=== PATIENT | female | born 1950 | race Caucasian/White ===

== ENCOUNTER → 2019-02-01 | Outpatient (CLI) | payer MEDICARE, OTHER ==
--- NOTE | 2019-02-02 07:41 | Diagnostic Imaging Report ---
Exam: Cervical spine MRI precontrast History: Cervical radiculopathy, left shoulder and neck pain Comparison studies: None Technique: Sagittal T1, T2 and IR, axial T2, axial T1 and axial gradient echo Intravenous contrast: None Findings: Several pulse sequences are still limited by artifacts related to patient motion. Alignment: Normal lordosis. No scoliosis. Cervicomedullary junction: No abnormalities. Patent foramen magnum. Soft tissues: No T2 hyperintense inflammatory changes. Spinal cord: Normal in size. No gross cord signal abnormalities. Vertebrae: No fractures, infection or neoplasm. Degenerative changes: C2-C3: Mildly degenerated disc. Minimal retrolisthesis of C2 on C3 with associated disc osteophyte complex, uncovertebral arthrosis and facet arthrosis with mild right foraminal stenosis. Patent canal and left foramen C3-C4: Mildly degenerated disc. Small asymmetric right disc osteophyte complex does not result in significant canal stenosis. Patent foramina. C4-C5: Mildly degenerated disc. Disc osteophyte complex and uncovertebral arthrosis result in mild bilateral foramina stenosis. Patent canal. C5-C6: Moderately degenerated disc. Disc osteophyte complex, uncovertebral arthrosis and facet arthrosis result in severe right and mild left foraminal stenosis. Minimal canal stenosis.. C6-C7: Mildly degenerated disc. Disc osteophyte complex, uncovertebral arthrosis and facet arthrosis with moderate bilateral foraminal stenosis. Minimal canal stenosis. C7-T1: Patent canal and foramina. T1-T2 through T3-T4: Mildly degenerated disks. Small paracentral disc protrusion at T1-T2 and small disc bulge at T2-T3 do not result in canal stenosis. Patent foramina. IMPRESSION: 1. Multilevel disc degeneration, greatest/moderate at C5-C6 and at C6-C7. 2. Severe right C5-C6 and moderate bilateral C6-C7 degenerative foraminal stenosis. 3. No significant canal stenosis. Signed by: Dr. Montez Clarke M.D. on 02/02/2019 7:38 AM
--- NOTE | 2019-02-02 10:26 | Diagnostic Imaging Report ---
TECHNIQUE: Magnetic resonance imaging of the LEFT SHOULDER was performed WITHOUT injected contrast. The study is partially limited by suboptimal fat saturation on some of the images. HISTORY: ADHESIVE CAPSULITIS, frozen, pain COMPARISON: None available. FINDINGS: MUSCLES AND TENDONS: Rotator Cuff: Tendons: Supraspinatus and Infraspinatus: High-grade bursal sided attenuation of the anterior supraspinatus fibers. Mild thickening and increased intrasubstance signal of the upper spine greatest tendon. Teres Minor: Intact Subscapularis: Intact Muscles: No focal muscle atrophy. Biceps Tendon: The long head of the biceps tendon is intact and within the intertubercular groove. GLENOHUMERAL JOINT: Glenoid Labrum: No displaced tear. Articular Cartilage: Low-grade erosion of the glenoid cartilage. Joint Fluid: No effusion. ACROMIOCLAVICULAR JOINT: Mild hypertrophic degenerative changes of the acromioclavicular joint. Synovitis and trace effusion. BONE: The acromion is unremarkable. No focal or infiltrative bone marrow replacing abnormality. No acute fracture. Subcortical enthesopathic cystic changes at the posterior aspect of the greater tuberosity. SOFT TISSUES: Trace fluid in the subacromial/subdeltoid bursa. Mild synovitis of the rotator interval. Mild thickening and edema of the glenohumeral axillary recess joint capsule. IMPRESSION: 1. Findings compatible with evolving adhesive capsulitis. 2. High-grade, focal, bursal sided, partial-thickness tear of the anterior supraspinatus tendon. 3. Mild infraspinatus tendinosis and chronic insertional enthesopathy. 4. Mild acromioclavicular osteoarthritis and minimal glenohumeral osteoarthrosis. 5. Minimal subacromial/subdeltoid bursitis. Signed by: Dr. Jules Esquivel D.O., M.M.M. on 02/02/2019 10:23 AM
== END ==
LOC: MRI 15:27
PROVIDERS: ATTEND Family Medicine
DX: M54.12 Radiculopathy, cervical region (principal); M75.02 Adhesive capsulitis of left shoulder
CPT/HCPCS: 72141

== ENCOUNTER 2019-02-21 05:56 | Observation (INO) | payer MEDICARE, OTHER ==
[2019-02-19 11:59] LABS: BASOPHILS # (AUTO) 0.1 (0.0-0.1); BASOPHILS % 0.7 % (0.0-1.0); EOSINOPHILS # (AUTO) 0.5 (0.0-0.4); EOSINOPHILS % 4.7 % (0.0-6.0); HEMATOCRIT 40.6 % (34.2-44.1); HEMOGLOBIN 12.7 g/dL (12.0-16.0); LYMPHOCYTES # (AUTO) 3.3 (1.0-3.2); LYMPHOCYTES % 31.3 % (18.0-39.1); MEAN CORPUSCULAR HEMOGLOBIN 25.2 pg (28-32); MEAN CORPUSCULAR HGB CONC 31.3 g/dL (31-35); MEAN CORPUSCULAR VOLUME 80.7 fL (81-99); MONOCYTES # (AUTO) 0.8 (0.2-0.8); MONOCYTES % 7.7 % (4.4-11.3); NEUTROPHILS # (AUTO) 5.7 (2.1-6.9); NEUTROPHILS % 54.1 % (38.7-80.0); PLATELET COUNT 392 x10e3/uL (140-360); RED BLOOD COUNT 5.03 x10e6/uL (3.6-5.1); RED CELL DISTRIBUTION WIDTH 14.7 % (11.7-14.4)
[2019-02-19 12:16] LABS: ANION GAP 13.6 mmol/L (8-16); BLOOD UREA NITROGEN 18 mg/dL (7-26); BUN/CREATININE RATIO 24 (6-25); CALCIUM 9.9 mg/dL (8.4-10.2); CARBON DIOXIDE 27 mmol/L (22-29); CHLORIDE 100 mmol/L (98-107); CREATININE, SERUM 0.76 mg/dL (0.57-1.11); EST GLOMERULAR FILTRATION RATE > 60 ML/MIN (60-); GLUCOSE 95 mg/dL (74-118); POTASSIUM 4.6 mmol/L (3.5-5.1); SODIUM 136 mmol/L (136-145)
--- NOTE | 2019-02-19 12:20 | Diagnostic Imaging Report ---
EXAMINATION: PA and lateral views of the chest. COMPARISON: None CLINICAL HISTORY: Preoperative study for hernia repair DISCUSSION: The lungs are well-inflated. Linear opacity in the right midlung compatible with scar or subsegmental atelectasis. No airspace consolidation, pleural effusion, or pneumothorax. Cardiomediastinal contour and pulmonary vasculature are within normal limits. No acute osseous abnormality. Upper abdominal surgical clips on the lateral radiograph likely reflect prior cholecystectomy. IMPRESSION: Right midlung scar or subsegmental atelectasis. Otherwise no acute cardiopulmonary abnormality. Signed by: Dr. Montez Sutton M.D. on 02/19/2019 12:17 PM
[~2019-02-21] VITALS: Ht 165.1 cm; Wt 54.4 kg
[~2019-02-21 05:56] MED LIST: EFFEXOR XR 3737.5 MG; LYRICA75 MG; NEXIUM40 MG; TYLENOL WITH C1 EACH PO
--- OUTSIDE RECORDS SUMMARY | 2019-02-21 06:00 | XMS REPORT | Summary of Care ---
Author Author NANCY LORD M.D. Organization Unknown Address [facility] Phone Unavailable Care Team Providers Care Pilates Instructor Name Role Phone NANCY LORD M.D. Unavailable Unavailable NANCY REGALADO Unavailable Unavailable Functional Status Name Dates Details Functional status health issues are not documented Status: Name Dates Details Cognitive status health issues are not documented Status: Problems Name Dates Details Adhesive capsulitis of left shoulder (726.0, M75.02) Status: Active Medications Name Dates Details Tylenol with Codeine #3 TABS Active Effexor 50 MG TABS * Refills: 0 Active NexIUM PACK * Refills: 0 Active Allergies and Adverse Reactions Name Dates Details No Known Drug Allergies (Allergy) Status: Active Past Medical History Name Dates Details History of arthritis (V13.4, Z87.39) Status: Resolved History of asthma (V12.69, Z87.09) Status: Resolved History of back pain (V13.59, Z87.39) Status: Resolved History of carpal tunnel syndrome (V12.49, Z86.69) Status: Resolved History of depression (V11.8, Z86.59) Status: Resolved History of gallbladder disease (V12.79, Z87.19) Status: Resolved History of hay fever (V12.69, Z87.09) Status: Resolved History of hemorrhoids (V13.89, Z87.19) Status: Resolved History of hepatitis (V12.09, Z86.19) Status: Resolved History of Hernia (553.9, K46.9) Status: Resolved History of pneumonia (V12.61, Z87.01) Status: Resolved History of staphylococcal infection (V12.09, Z86.19) Status: Resolved Procedures Procedure Dates Details History of Gallbladder surgery Completed History of Hysterectomy Completed Immunization Name Dates Details Immunizations not documented Family History Name Dates Details Family history of Heart trouble (429.9, I51.9) Comments: Family History Status: Active Family history of hypertension (V17.49, Z82.49) Comments: Family History Status: Active Family history of malignant neoplasm (V16.9, Z80.9) Comments: Family History Status: Active Social History Name Dates Details Unknown if ever smoked Vital Signs Date Test Result Details No Known Vitals to report Results Date Description Value Details [id number] [U] XRAY SHOULDER MIN 2 VWS LEFT [id number] XR SHOULDER MIN 2 VWS LEFT Images acquired, not reported on this accession number. [id number] [U] XRAY SPINE CERVICAL 2 OR 3 VWS [id number] XR SPINE CERVICAL 2 OR 3 VWS Images acquired, not reported on this accession number. Plan of Care Name Dates Details Planned Observations Planned Goals not documented Planned Encounters Physical Therapy Referral Ortho Appointment; NANCY LORD M.D. On: 30-Jan-2019 11:15 Interventions Provided Labs/Procedures/Imaging* [U] XRAY SHOULDER MIN 2 VWS LEFT [id number]; Done: 19 Dec 2018 * [U] XRAY SPINE CERVICAL 2 OR 3 VWS [id number]; Done: 19 Dec 2018 Plan* - Left shoulder corticosteroid injection today * - Trial of PT with home health * - Ibuprofen, topical NSAIDs for pain * - RTC in 6 weeks * Completed at Today's Appointment: * Injection * Patient Education/Instructions: * Patient Education Provided * Reassurance * Patient/Parent to call or return with any abnormal changes * Orders: * Physical Therapy * Medications: * Medications (prescribed or recommended at this visit): Medication was prescribed or recommended. Dosage, administration, and common potential side effects were reviewed. Please confirm and review medication information and directions with the pharmacist. * - Instructions were given to take anti-inflammatory medication with food and only as directed by a physician. DO NOT take more than prescribed as this can cause serious side effects including kidney damage in higher doses. * Instructions were given to apply topical anti-inflammatory medication only as directed by a physician. Do not take oral NSAIDs while using this medication. * - Take 500mg - 1000mg of acetaminophen (Tylenol) every 4-6 hours as needed for relief of pain, discomfort, or fever. Do NOT take more than 4000mg in a 24 hour period (can cause liver damage in higher doses). * Follow Up: * Return to the clinic in 6 weeks or as needed. Instructions Name Dates Details Instructions not documented Encounters Appointment; NANCY LORD M.D. Encounter Diagnosis: Problem not documented On: 19-Dec-2018 11:15
--- OUTSIDE RECORDS SUMMARY | 2019-02-21 06:00 | XMS REPORT ---
Author Author [facility] Address Unknown Phone Unavailable Care Team Providers Care Winder Helper Name Role Phone Jennifer BROWNLEE Unavailable Unavailable Carlos Alberto HAWKINS Unavailable Unavailable Payers Payer Name Policy Type Policy Number Effective Date Expiration Date Problems This patient has no known problems. Allergies, Adverse Reactions, Alerts Allergy Name Allergy Type Status Severity Reaction(s) Onset Date Inactive Date Treating Clinician Comments clavulanic acid DA Active U 2018-11-01 00:00:00 amoxicillin DA Active U 2018-11-01 00:00:00 levofloxacin DA Active U 2018-11-01 00:00:00 Medications This patient has no known medications. Results Test Description Test Time Test Comments Text Results Atomic Results Result Comments CHEST 2 VIEWS 2019-02-19 12:15:00 [place] [address] Patient Name: SILVINO GAGNON MR #: [id number] : 1950 Age/Sex: 68/F Req #: [id number] Adm Physician: Ordered by: CARLOS BROWNLEE MD Report #: [id number] Location: OR Room/Bed: Procedure: [id number] DX/CHEST 2 VIEWS Exam Date: 02/19/19 Exam Time: 1140 REPORT STATUS: Signed EXAMINATION: PA and lateral views of the chest. COM PARISON: None CLINICAL HISTORY: Preoperative study for hernia repair DISCUSSION: The lungs are well-inflated. Linear opacity in the right midlung compatible with scar or subsegmental atelectasis. No airspace consolidation, pleural effusion, or pneumothorax. Cardiomediastinal contour and pulmonary vasculature are within normal limits. No acute osseous abnormality. Upper abdominal surgical clips on the lateral radiograph likely reflect prior cholecystectomy. IMPRESSION: Right midlung scar or subsegmental atelectasis. Otherwise no acute cardiopulmonary abnormality. Signed by: Dr. Bella Sutton M.D. on 02/19/2019 12:17 PM Dictated By: BELLA SUTTON MD 1217 Transcribed By: GUI on 02/19/19 1217 COPY TO: CARLOS BROWNLEE MD MRI SHOULDER LEFT WO 2019-02-02 10:14:00 [place] [address] Patient Name: SILVINO GAGNON MR #: [id number] : 1950 Age/Sex: 68/F Req #: [id number] Adm Physician: Ordered by: MIKO HAWKINS MD Report #: [id number] Location: MRI Room/Bed: Procedure: [id number] MRI/MRI SHOULDER LEFT WO Exam Date: Exam Time: REPORT STATUS: Signed TECHNIQUE: Magnetic resonance imaging of the LEFT SHOULDER was p erformed WITHOUT injected contrast. The study is partially limited by suboptimal fat saturation on some of the images. HISTORY: ADHESIVE CAPSULITIS, frozen, pain COMPARISON: None available. FINDINGS: MUSCLES AND TENDONS: Rotator Cuff: Tendons: Supraspinatus and Infraspinatus: High-grade bursal sided attenuation of the anterior supraspinatus fibers. Mild thickening and increased intrasubstance signal of the upper spine greatest tendon. Teres Minor: Intact Subscapularis: Intact Muscles: No focal muscle atrophy. Biceps Tendon: The long head of the biceps tendon is intact and within the intertubercular groove. GLENOHUMERAL JOINT: Glenoid Labrum: No displaced tear. Articular Cartilage: Low-grade erosion of the glenoid cartilage. Joint Fluid: No effusion. ACROMIOCLAVICULAR JOINT: Mild hypertrophic degenerative changes of the acromioclavicular joint. Synovitis and trace effusion. BONE: The acromion is unremarkable. No focal or infiltrative bone marrow replacing abnormality. No acute fracture. Subcortical enthesopathic cystic changes at the posterior aspect of the greater tuberosity. SOFT TISSUES: Trace fluid in the subacromial/subdeltoid bursa. Mild synovitis of the rotator interval. Mild thickening and edema of the glenohumeral axillary recess joint capsule. IMPRESSION: 1. Findings compatible with evolving adhesive capsulitis. 2. High-grade, focal, bursal sided, partial-thickness tear of the anterior supraspinatus tendon. 3. Mild infraspinatus tendinosis and chronic insertional enthesopathy. 4. Mild acromioclavicular osteoarthritis and minimal glenohumeral osteoarthrosis. 5. Minimal subacromial/subdeltoid bursitis. Signed by: Mikki ConcepcionO., M.M.M. on 02/02/2019 10:23 AM Dictated By: GLENDA ROMERO DO 1023 Transcribed By: GUI on 02/02/19 1023 COPY TO: MIKO HAWKINS MD MRI SPINE CERVICAL WO 2019-02-02 07:26:00 [place] [address] Patient Name: SILVINO GAGNON MR #: [id number] : 1950 Age/Sex: 68/F [facility] #: [id number] Req #: [id number] [facility] Physician: Ordered by: MIKO HAWKINS MD Report #: [id number] Location: MRI Room/Bed: Procedure: [id number] MRI/MRI SPINE CERVICAL WO Exam Date: Exam Time: REPORT STATUS: Signed Exam: Cervical spine MRI precontrast History: Cervical radiculo rocky, left shoulder and neck pain Comparison studies: None Technique: Sagittal T1, T2 and IR, axial T2, axial T1 and axial gradient echo Intravenous contrast: None Findings: Several pulse sequences are still limited by artifacts related to patient motion. Alignment: Normal lordosis. No scoliosis. Cervicomedullary junction: No abnormalities. Patent foramen magnum. Soft tissues: No T2 hyperintense inflammatory changes. Spinal cord: Normal in size. No gross cord signal abnormalities. Vertebrae: No fractures, infection or neoplasm. Degenerative changes: C2-C3: Mildly degenerated disc. Minimal retrolisthesis of C2 on C3 with associated disc osteophyte complex, uncovertebral arthrosis and facet arthrosis with mild right foraminal stenosis. Patent canal and left foramen C3-C4: Mildly degenerated disc. Small asymmetric right disc osteophyte complex does not result in significant canal stenosis. Patent foramina. C4-C5: Mildly degenerated disc. Disc osteophyte complex and uncovertebral arthrosis result in mild bilateral foramina stenosis. Patent canal. C5-C6: Moderately degenerated disc. Disc osteophyte complex, uncovertebral arthrosis and facet arthrosis result in severe right and mild left foraminal stenosis. Minimal canal stenosis.. C6-C7: Mildly degenerated disc. Disc osteophyte complex, uncovertebral arthrosis and facet arthrosis with moderate bilateral foraminal stenosis. Minimal canal stenosis. C7-T1: Patent canal and foramina. T1-T2 through T3-T4: Mildly degenerated disks. Small paracentral disc protrusion at T1-T2 and small disc bulge at T2-T3 do not result in canal stenosis. Patent foramina. IMPRESSION: 1. Multilevel disc degeneration, greatest/moderate at C5-C6 and at C6-C7. 2. Severe right C5- C6 and moderate bilateral C6-C7 degenerative foraminal stenosis. 3. No significant canal stenosis. Signed by: Dr. Bella Erickson M.D. on 02/02/2019 7:38 AM Dictated By: BELLA ERICKSON MD 7 Transcribed By: GUI on 02/02/19737 COPY TO: MKIO HAWKINS MD - CT CHEST W/CONTRAST 2019-01-01 15:40:00 Name: SILVINO GAGNON [facility] : 1950 Age/S: 68 / F [address] [place] [address] Unit #: [id number] Loc: [place] [address] Phys: Kamari Willis MD Acct: [id number] Dis Date: Status: REG CLI PHONE #: [phone] Exam Date: 01/01/2019 09 FAX #: [phone] Reason: R91.1 LUNG NODULE EXAMS: CPT CODE: [id number] CT CHEST W/CONTRAST [address]9024 Patient: SILVINO GAGNON. : 1950; Age: 68 years; Gender: Female. MR: [id number]. Ordering physician: Kamari Willis MD. PROCEDURE: CT CHEST WITH CONTRAST. INDICATION: Lung nodules and abscess. COMPARISON: None. TECHNIQUE: Helical imaging performed apices through the lung bases with multiplanar reconstructions. CT imaging was performed with exposure control parameters to reduce radiation dose. Total DLP: 313.20 mGy-cm IV CONTRAST: 100 mL Isovue 300. FINDINGS: LUNGS: Small calcified granuloma noted at the posterolateral right upper lobe, axial image 34. Small faint nodules noted in the right upper lobe, largest measuring 3 mm, suspected to be infectious versus inflammatory in etiology. 2-3 mm subpleural pulmonary nodule noted at the posterior aspect of right lower lobe. Pleuroparenchymal scarring and/or atelectasis noted along the right minor fissure. No pleural effusion, pneumothorax, infiltrate or bronchiectasis. MEDIASTINUM: Heart is normal in size. No pericardial effusion. Great vessels are normal in course and caliber. No adenopathy. Small hiatal hernia noted. UPPER ABDOMEN: Visualized upper abdominal viscera are normal. MUSCULOSKELETAL: The skeleton is intact. 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 IMPRESSION: 1. Small faint nodules in the right upper lobe, largest measuring 3 mm, suspected to be infectious versus inflammatory in etiology. 2-3 mm subpleural pulmonary nodule also noted at the posterior aspect of right lower lobe. 2. Pleuroparenchymal scarring and/or atelectasis along the right minor fissure. No pulmonary abscess. PAGE 1 Signed Report (CONTINUED) Name: SILVINO GAGNON [facility] : 1950 Age/S: 68 / F [address] [place] [address] Unit #: [id number] Loc: [place] [address] Phys: Kamari Willis MD Acct: [id number] Dis Date: Status: REG CLI PHONE #: [phone] Exam Date: 01/01/2019 0904 FAX #: [phone] Reason: R91.1 LUNG NODULE EXAMS: CPT CODE: [id number] CT CHEST W/CONTRAST 68491 <Continued> 3. Small hiatal hernia. 4. 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 SL: [id number] at 1540 Reported and signed by: Leobardo Phelps M.D. CC: Ja Bowman MD; Kamari Willis MD; Miko Hawkins MD Technologist:RT Raghu(R)(CT) CTDI: DLP: Trnscb Date/Time: 01/01/2019 (1540) [email or web address] Orig Print D/T: S: 01/01/2019 (1543) CTDI: DLP: PAGE 2 Signed Report - XR ESOPHAGUS 2019-01-01 10:21:00 FAX: Ja Cai MD [phone] [place]: St: REG FAX: Kamari Ernandez MD [phone] FAX: Miko Gomez MD [phone] Name: SILVINO GAGNON [facility] : 1950 Age/S: 68/F [address] [place] [address] Unit #: [id number] Loc: [place] [address] Phys: Ja Bowman MD Acct: [id number] Dis Date: Status: REG CLI PHONE #: [phone] Exam Date: 01/01/2019 0950 FAX #: [phone] Reason: 544.9 GERD, K22.70 HALL'S ESOPHAGUS EXAMS: CPT CODE: [id number] XR ESOPHAGUS 00263 Patient Name: SILVINO GAGNON : 1950; Age: 68 years y/o Female MR: [id number] Study: - XR ESOPHAGUS 01/01/2019 8:10 AM Ordering Physician: Ja Bowman MD Clinical Indication: 544.9 GERD, K22.70 HALL'S ESOPHAGUS Comparison: None TECHNIQUE AND FINDINGS: A routine barium esophagram was performed under fluoroscopic observation. Multiple spot images were obtained. Fluoroscopy time: 2 Reference air kerma: 41.7 mGy Limitations: None. OROPHARYNX AND SWALLOWING: Morphology: Normal base of tongue, valleculae, and piriform sinuses. Swallowing: Normally initiated. Laryngeal penetration/aspiration: None. Pharyngoesophageal junction: Normal in appearance without narrowing or diverticulum. ESOPHAGUS: Morphology: Normal in course and caliber. Motility: Normal primary and secondary peristaltic waves. Mucosa: Normal without thickening, irregularity, or ulcer. Esophagogastric junction: Small sliding-type hiatal hernia. Gastroesophageal reflux: None identified. STOMACH: Morphology: Normal degree of distention and shape. IMPRESSION: Small sliding-type hiatal hernia. No esophageal stricture or diverticula identified. PAGE 1 Signed Report (CONTINUED) FAX: Ja Cai MD [phone] [place]: St: [facility] FAX: Kamari Ernandez MD [phone] FAX: Miko Gomez MD [phone] Name: SILVINO GAGNON [facility] : 1950 Age/S: 68/F [address] [place] [address] Unit #: [id number] Loc: [place] [address] Phys: Ja Bowman MD Acct: [id number] Dis Date: Status: REG CLI PHONE #: [phone] Exam Date: 01/01/2019 0950 FAX #: [phone] Reason: 544.9 GERD, K22.70 HALL'S ESOPHAGUS EXAMS: CPT CODE: [id number] XR ESOPHAGUS 14137 <Continued> SL: [id number] at 1021 Reported and signed by: Mikie Turk M.D. CC: Ja Bowman MD; Kamari Willis MD; Miko Hawkins MD Technologist: Mishel Feldman RT(R) Trnscrd Date/Time/By: 01/01/2019 (1021) : By: [email or web address] Orig Print D/T: S: 01/01/2019 (1021) PAGE 2 Signed Report BLOOD UREA NITROGEN 2019-01-01 08:46:00 BLOOD UREA NITROGEN (test code=BUN) 16 mg/dL 7-18 [id number] 08:46:00* Test Item Value Reference Range Comments CREATININE (test code=CREAT) 0.7 mg/dL 0.6-1.3 BASIC METABOLIC [id number] 03:44:00* Test Item Value Reference Range Comments SODIUM (test code=NA) 141 MMOL/L 133-145 POTASSIUM (test code=K) 4.2 MMOL/L 3.6-5.2 CHLORIDE (test code=CL) 103 MMOL/L 100-108 CARBON DIOXIDE (test code=CO2) 30 MMOL/L 22-32 GLUCOSE (test code=GLU) 141 MG/DL 65-99 Results of this assay method may be falsely depressed orelevated if patient is taking sulfasalazine. BLOOD UREA NITROGEN (test code=BUN) 11 MG/DL 6-20 GLOMERULAR FILTRATION RATE (test code=GFR) 80 45-104 Reporting units: mL/min/1.73m\S\2 (Modified MDRD Formula) CREATININE (test code=CREAT) 0.73 MG/DL 0.60-1.00 CALCIUM (test code=CA) 8.5 MG/DL 8.7-10.5 [id number] 03:44:00* Test Item Value Reference Range Comments MAGNESIUM (test code=MAG) 2.1 MG/DL 1.8-2.4 CBC W/AUTO [id number] 11:49:00* Test Item Value Reference Range Comments WHITE BLOOD CELL (test code=WBC) 13.94 x10 3/uL 4.80-10.80 RED BLOOD CELL (test code=RBC) 3.84 x10 6/uL 4.2-5.4 HEMOGLOBIN (test code=HGB) 10.2 G/DL 12.0-16.0 HEMATOCRIT (test code=HCT) 33.0 % 37-47 MEAN CELL VOLUME (test code=MCV) 85.9 FL 81-99 MEAN CELL HGB (test code=MCH) 26.6 PG 27-31 MEAN CELL HGB CONCENTRATION (test code=MCHC) 30.9 G/DL 33-37 RED CELL DISTRIBUTION WIDTH (test code=RDW) 16.2 % 11.5-14.5 PLATELET COUNT (test code=PLT) 311 x10 3/uL 150-450 MEAN PLATELET VOLUME (test code=MPV) 9.0 FL 7.4-10.4 NEUTROPHIL % (test code=NT%) 74.8 % 42-86 IMMATURE GRANULOCYTE % (test code=IG%) 0.4 % 0.0-2.0 LYMPHOCYTE % (test code=LY%) 17.0 % 24-44 MONOCYTE % (test code=MO%) 5.7 % 0.0-4.0 EOSINOPHIL % (test code=EO%) 1.7 % 0.0-2.7 BASOPHIL % (test code=BA%) 0.4 % 0.0-0.5 NUCLEATED RBC % (test code=NRBC%) 0.0 % 0.0-0.0 NEUTROPHIL # (test code=NT#) 10.43 x10 3/uL 1.8-7.7 IMMATURE GRANULOCYTE # (test code=IG#) 0.05 x10 3/uL 0.00-0.03 LYMPHOCYTE # (test code=LY#) 2.37 x10 3/uL 1.0-4.8 MONOCYTE # (test code=MO#) 0.80 x10 3/uL 0.0-0.8 EOSINOPHIL # (test code=EO#) 0.24 x10 3/uL 0.0-0.5 BASOPHIL # (test code=BA#) 0.05 x10 3/uL 0.0-0.2 NUCLEATED RBC # (test code=NRBC#) 0.0 X10 3/uL 0.0-0.2 BASIC METABOLIC [id number] 06:56:00* Test Item Value Reference Range Comments SODIUM (test code=NA) 136 MMOL/L 133-145 VERIFIED BY REPEAT ANALYSIS ON SAME SPECIMEN. POTASSIUM (test code=K) 4.0 MMOL/L 3.6-5.2 CHLORIDE (test code=CL) 101 MMOL/L 100-108 CARBON DIOXIDE (test code=CO2) 29 MMOL/L 22-32 GLUCOSE (test code=GLU) 143 MG/DL 65-99 Results of this assay method may be falsely depressed orelevated if patient is taking sulfasalazine. BLOOD UREA NITROGEN (test code=BUN) 9 MG/DL 6-20 GLOMERULAR FILTRATION RATE (test code=GFR) 63 45-104 Reporting units: mL/min/1.73m\S\2 (Modified MDRD Formula) CREATININE (test code=CREAT) 0.90 MG/DL 0.60-1.00 CALCIUM (test code=CA) 8.7 MG/DL 8.7-10.5 [id number] 06:56:00* Test Item Value Reference Range Comments MAGNESIUM (test code=MAG) 2.3 MG/DL 1.8-2.4 PROTHROMBIN [id number] 08:05:00* Test Item Value Reference Range Comments PROTHROMBIN TIME PATIENT (test code=PTP) 13.9 SECONDS 9.6-12.3 INTERNATIONAL NORMAL RATIO (test code=INR) 1.24 Recommended INR range (warfarin therapy): 2.0 - 3.0INR (International Normalized Ratio) should beused when interpreting oral anticoaglulant therapy. For atrial fibrillation and treatment orprevention of deep vein thrombosis. Patients with Palmaz-Peggy stent *: 2.0 - 3.0 Patients with mechanical heart valve *: 2.5 - 3.5 Patients with flex-stent *: 3.0 - 4.0(*)=chief human resources officer's suggested range Is patient on anticoagulants? No AnticoagulantsCBC W/AUTO [id number] 08:03:00* Test Item Value Reference Range Comments WHITE BLOOD CELL (test code=WBC) 10.12 x10 3/uL 4.80-10.80 RED BLOOD CELL (test code=RBC) 4.09 x10 6/uL 4.2-5.4 HEMOGLOBIN (test code=HGB) 10.9 G/DL 12.0-16.0 HEMATOCRIT (test code=HCT) 34.8 % 37-47 MEAN CELL VOLUME (test code=MCV) 85.1 FL 81-99 MEAN CELL HGB (test code=MCH) 26.7 PG 27-31 MEAN CELL HGB CONCENTRATION (test code=MCHC) 31.3 G/DL 33-37 RED CELL DISTRIBUTION WIDTH (test code=RDW) 16.0 % 11.5-14.5 PLATELET COUNT (test code=PLT) 343 x10 3/uL 150-450 MEAN PLATELET VOLUME (test code=MPV) 8.7 FL 7.4-10.4 NEUTROPHIL % (test code=NT%) 62.6 % 42-86 IMMATURE GRANULOCYTE % (test code=IG%) 1.5 % 0.0-2.0 LYMPHOCYTE % (test code=LY%) 23.0 % 24-44 MONOCYTE % (test code=MO%) 9.4 % 0.0-4.0 EOSINOPHIL % (test code=EO%) 2.8 % 0.0-2.7 BASOPHIL % (test code=BA%) 0.7 % 0.0-0.5 NUCLEATED RBC % (test code=NRBC%) 0.0 % 0.0-0.0 NEUTROPHIL # (test code=NT#) 6.34 x10 3/uL 1.8-7.7 IMMATURE GRANULOCYTE # (test code=IG#) 0.15 x10 3/uL 0.00-0.03 LYMPHOCYTE # (test code=LY#) 2.33 x10 3/uL 1.0-4.8 MONOCYTE # (test code=MO#) 0.95 x10 3/uL 0.0-0.8 EOSINOPHIL # (test code=EO#) 0.28 x10 3/uL 0.0-0.5 BASOPHIL # (test code=BA#) 0.07 x10 3/uL 0.0-0.2 NUCLEATED RBC # (test code=NRBC#) 0.0 X10 3/uL 0.0-0.2 BASIC METABOLIC [id number] 07:30:00* Test Item Value Reference Range Comments SODIUM (test code=NA) 140 MMOL/L 133-145 POTASSIUM (test code=K) 4.6 MMOL/L 3.6-5.2 CHLORIDE (test code=CL) 102 MMOL/L 100-108 CARBON DIOXIDE (test code=CO2) 30 MMOL/L 22-32 GLUCOSE (test code=GLU) 118 MG/DL 65-99 Results of this assay method may be falsely depressed orelevated if patient is taking sulfasalazine. BLOOD UREA NITROGEN (test code=BUN) 5 MG/DL 6-20 GLOMERULAR FILTRATION RATE (test code=GFR) 77 45-104 Reporting units: mL/min/1.73m\S\2 (Modified MDRD Formula) CREATININE (test code=CREAT) 0.75 MG/DL 0.60-1.00 CALCIUM (test code=CA) 9.1 MG/DL 8.7-10.5 [id number] 07:30:00* Test Item Value Reference Range Comments MAGNESIUM (test code=MAG) 2.2 MG/DL 1.8-2.4 - CT HEAD/BRAIN W/O [id number] 15:18:00 Patient Name: SILVINO GAGNON Unit No: [id number] EXAMS: CPT CODE: [id number] CT HEAD/BRAIN W/O CONT 63051 Reason: altered mental status, to r/o CV - CT HEAD/BRAIN W/O CONT 11/10/2018 1:55 PM Indication: Altered mental status UNENHANCED CT BRAIN SCAN: Scans of the brain were performed at routine axial sections without the use of IV contrast. The ventricular system and subarachnoid spaces are normal for age. No mass lesion, midline shift, or extracerebral fluid collection is present. No low or high attenuation intraparenchymal lesions are noted. The paranasal sinuses, mastoids, and middle ears are normally aerated. IMPRESSION: No acute disease. at 1518 Reported and signed by: Reynaldo Hawyard MD CC: Myron Mariscal MD Technologist: Edi Finley CT Trscrpt Dt/ (1518)t.SDR.[email or web address] Orig Print D/T: S: 11/10/2018 (1522) CTDI: DLP: [facility] NAME: SILVINO FREEMAN [facility] PHYS: CECILIA.Danya Myron Mariscal MD [facility] [place] [address] : 1950 AGE: 68 SEX: F LOC: D.D320 1 PHONE #: [phone] EXAM DATE: 11/10/2018 STATUS: ADM IN FAX #: RAD NO: DC Dt: PAGE 1 Signed Report UA RFLX MICROSCOPIC [id number] 08:46:00* Test Item Value Reference Range Comments UA COLOR (test code=COLU) YELLOW YELLOW UA APPEARANCE (test code=APPU) CLEAR CLEAR UA GLUCOSE DIPSTICK (test code=DGLUU) NEGATIVE mg/dL NEGATIVE UA BILIRUBIN DIPSTICK (test code=BILU) NEGATIVE NEGATIVE UA KETONE DIPSTICK (test code=KETU) NEGATIVE mg/dL NEGATIVE UA SPECIFIC GRAVITY (test code=SGU) 1.005 1.001-1.035 UA BLOOD DIPSTICK (test code=ANNIE) 4+ NEGATIVE UA PH DIPSTICK (test code=RONALD) 5.5 5.5-7.0 UA PROTEIN DIPSTICK (test code=PROU) NEGATIVE mg/dL NEGATIVE UA UROBILINOGEN DIPSTICK (test code=URO) NORMAL mg/dL NORMAL UA NITRITE DIPSTICK (test code=ROSALINDA) NEGATIVE NEGATIVE UA LEUKOCYTE ESTERASE DIPSTICK (test code=LEUU) 1+ NEGATIVE UA COMMENT (test code=COMU) VOLUME 10-12 ML URINE SPECIMEN DESCRIPTION (test code=UASPEC) Clean Catch UA WBC (test code=WBCU) 20 - 30 #/hpf <10 WBC CLUMPING PRESENT UA SQUAMOUS CELLS (test code=SQU) 20 - 40 #/lpf <100 UA CULTURE NEEDED? (test code=UACULT) Criteria met URINE SOURCE: Clean CatchUA [id number] 08:46:00* Test Item Value Reference Range Comments UA RBC (test code=RBCU) 2-5 #/hpf NONE SEEN UA BACTERIA (test code=BACU) 2+ #/hpf NONE SEEN URINE SOURCE: Clean CatchUA RFLX MICROSCOPIC [id number] 07:57:00* Test Item Value Reference Range Comments UA COLOR (test code=COLU) YELLOW YELLOW UA APPEARANCE (test code=APPU) CLEAR CLEAR UA GLUCOSE DIPSTICK (test code=DGLUU) NEGATIVE mg/dL NEGATIVE UA BILIRUBIN DIPSTICK (test code=BILU) NEGATIVE NEGATIVE UA KETONE DIPSTICK (test code=KETU) NEGATIVE mg/dL NEGATIVE UA SPECIFIC GRAVITY (test code=SGU) 1.005 1.001-1.035 UA BLOOD DIPSTICK (test code=ANNIE) 4+ NEGATIVE UA PH DIPSTICK (test code=RONALD) 5.5 5.5-7.0 UA PROTEIN DIPSTICK (test code=PROU) NEGATIVE mg/dL NEGATIVE UA UROBILINOGEN DIPSTICK (test code=URO) NORMAL mg/dL NORMAL UA NITRITE DIPSTICK (test code=ROSALINDA) NEGATIVE NEGATIVE UA LEUKOCYTE ESTERASE DIPSTICK (test code=LEUU) 1+ NEGATIVE UA COMMENT (test code=COMU) VOLUME 10-12 ML URINE SPECIMEN DESCRIPTION (test code=UASPEC) Clean Catch UA WBC (test code=WBCU) #/hpf <10 UA SQUAMOUS CELLS (test code=SQU) #/lpf <100 UA CULTURE NEEDED? (test code=UACULT) URINE SOURCE: Clean CatchUA [id number] 07:57:00* Test Item Value Reference Range Comments UA RBC (test code=RBCU) #/hpf NONE SEEN URINE SOURCE: Clean CatchUA RFLX MICROSCOPIC [id number] 07:57:00* Test Item Value Reference Range Comments UA COLOR (test code=COLU) YELLOW YELLOW UA APPEARANCE (test code=APPU) CLEAR CLEAR UA GLUCOSE DIPSTICK (test code=DGLUU) NEGATIVE mg/dL NEGATIVE UA BILIRUBIN DIPSTICK (test code=BILU) NEGATIVE NEGATIVE UA KETONE DIPSTICK (test code=KETU) NEGATIVE mg/dL NEGATIVE UA SPECIFIC GRAVITY (test code=SGU) 1.005 1.001-1.035 UA BLOOD DIPSTICK (test code=ANNIE) 4+ NEGATIVE UA PH DIPSTICK (test code=RONALD) 5.5 5.5-7.0 UA PROTEIN DIPSTICK (test code=PROU) NEGATIVE mg/dL NEGATIVE UA UROBILINOGEN DIPSTICK (test code=URO) NORMAL mg/dL NORMAL UA NITRITE DIPSTICK (test code=ROSALINDA) NEGATIVE NEGATIVE UA LEUKOCYTE ESTERASE DIPSTICK (test code=LEUU) 1+ NEGATIVE UA COMMENT (test code=COMU) VOLUME 10-12 ML URINE SPECIMEN DESCRIPTION (test code=UASPEC) Clean Catch UA WBC (test code=WBCU) #/hpf <10 UA SQUAMOUS CELLS (test code=SQU) #/lpf <100 UA CULTURE NEEDED? (test code=UACULT) URINE SOURCE: Clean CatchUA [id number] 07:57:00* Test Item Value Reference Range Comments UA RBC (test code=RBCU) #/hpf NONE SEEN URINE SOURCE: Clean CatchBASIC METABOLIC [id number] 04:23:00* Test Item Value Reference Range Comments SODIUM (test code=NA) 138 MMOL/L 133-145 POTASSIUM (test code=K) 4.1 MMOL/L 3.6-5.2 CHLORIDE (test code=CL) 103 MMOL/L 100-108 CARBON DIOXIDE (test code=CO2) 29 MMOL/L 22-32 GLUCOSE (test code=GLU) 129 MG/DL 65-99 Results of this assay method may be falsely depressed orelevated if patient is taking sulfasalazine. BLOOD UREA NITROGEN (test code=BUN) 7 MG/DL 6-20 GLOMERULAR FILTRATION RATE (test code=GFR) 73 45-104 Reporting units: mL/min/1.73m\S\2 (Modified MDRD Formula) CREATININE (test code=CREAT) 0.79 MG/DL 0.60-1.00 CALCIUM (test code=CA) 8.6 MG/DL 8.7-10.5 [id number] 04:23:00* Test Item Value Reference Range Comments MAGNESIUM (test code=MAG) 2.2 MG/DL 1.8-2.4 CBC W/AUTO [id number] 04:05:00* Test Item Value Reference Range Comments WHITE BLOOD CELL (test code=WBC) 13.85 x10 3/uL 4.80-10.80 RED BLOOD CELL (test code=RBC) 4.20 x10 6/uL 4.2-5.4 HEMOGLOBIN (test code=HGB) 11.2 G/DL 12.0-16.0 HEMATOCRIT (test code=HCT) 35.8 % 37-47 MEAN CELL VOLUME (test code=MCV) 85.2 FL 81-99 MEAN CELL HGB (test code=MCH) 26.7 PG 27-31 MEAN CELL HGB CONCENTRATION (test code=MCHC) 31.3 G/DL 33-37 RED CELL DISTRIBUTION WIDTH (test code=RDW) 15.9 % 11.5-14.5 PLATELET COUNT (test code=PLT) 386 x10 3/uL 150-450 MEAN PLATELET VOLUME (test code=MPV) 9.2 FL 7.4-10.4 NEUTROPHIL % (test code=NT%) 58.5 % 42-86 IMMATURE GRANULOCYTE % (test code=IG%) 3.2 % 0.0-2.0 LYMPHOCYTE % (test code=LY%) 27.1 % 24-44 MONOCYTE % (test code=MO%) 8.0 % 0.0-4.0 EOSINOPHIL % (test code=EO%) 2.5 % 0.0-2.7 BASOPHIL % (test code=BA%) 0.7 % 0.0-0.5 NUCLEATED RBC % (test code=NRBC%) 0.0 % 0.0-0.0 NEUTROPHIL # (test code=NT#) 8.10 x10 3/uL 1.8-7.7 IMMATURE GRANULOCYTE # (test code=IG#) 0.44 x10 3/uL 0.00-0.03 LYMPHOCYTE # (test code=LY#) 3.75 x10 3/uL 1.0-4.8 MONOCYTE # (test code=MO#) 1.11 x10 3/uL 0.0-0.8 EOSINOPHIL # (test code=EO#) 0.35 x10 3/uL 0.0-0.5 BASOPHIL # (test code=BA#) 0.10 x10 3/uL 0.0-0.2 NUCLEATED RBC # (test code=NRBC#) 0.0 X10 3/uL 0.0-0.2 PROTHROMBIN [id number] 03:59:00* Test Item Value Reference Range Comments PROTHROMBIN TIME PATIENT (test code=PTP) 14.0 SECONDS 9.6-12.3 INTERNATIONAL NORMAL RATIO (test code=INR) 1.25 Recommended INR range (warfarin therapy): 2.0 - 3.0INR (International Normalized Ratio) should beused when interpreting oral anticoaglulant therapy. For atrial fibrillation and treatment orprevention of deep vein thrombosis. Patients with Palmaz-Peggy stent *: 2.0 - 3.0 Patients with mechanical heart valve *: 2.5 - 3.5 Patients with flex-stent *: 3.0 - 4.0(*)=chief human resources officer's suggested range Is patient on anticoagulants? No AnticoagulantsPROCALCITONIN (PCT)2018-11-09 16:07:00* Test Item Value Reference Range Comments PROCALCITONIN (PCT) (test code=PROCAL) 0.11 ng/mL 0.00-0.50 CBC W/AUTO [id number] 09:18:00* Test Item Value Reference Range Comments WHITE BLOOD CELL (test code=WBC) 20.24 x10 3/uL 4.80-10.80 RED BLOOD CELL (test code=RBC) 4.22 x10 6/uL 4.2-5.4 HEMOGLOBIN (test code=HGB) 11.3 G/DL 12.0-16.0 HEMATOCRIT (test code=HCT) 35.5 % 37-47 MEAN CELL VOLUME (test code=MCV) 84.1 FL 81-99 MEAN CELL HGB (test code=MCH) 26.8 PG 27-31 MEAN CELL HGB CONCENTRATION (test code=MCHC) 31.8 G/DL 33-37 RED CELL DISTRIBUTION WIDTH (test code=RDW) 15.7 % 11.5-14.5 PLATELET COUNT (test code=PLT) 471 x10 3/uL 150-450 MEAN PLATELET VOLUME (test code=MPV) 8.9 FL 7.4-10.4 MANUAL DIFF REQUIRED (test code=MDIFF) ADD MANUAL DIFF TECH REVIEW WBC [id number] 09:18:00* Test Item Value Reference Range Comments TOTAL CELLS COUNTED (test code=TCC) 100 #CELLS SEGMENTED NEUTROPHILS (test code=SEG) 66 % 42-86 BAND NEUTROPHIL (test code=BAND) 1 % 0-11 LYMPHOCYTE (test code=LYMPH) 20 % 24-44 MONOCYTE (test code=MON) 13 % 0-4 BAND ABSOLUTE (test code=BAND#) 0.20 x10 3/uL 0.0-0.7 NEUTROPHIL ABSOLUTE (test code=NEUTR#) 13.35 x10 3/uL 6.0-26.0 LYMPH ABSOLUTE (test code=LYMPH#) 4.04 x10 3/uL 2.0-17.0 ATYPICAL LYMPH ABSOLUTE (test code=ALYMPH#) 0.00 x10 3/uL 0.0-0.0 MONOCYTE ABSOLUTE (test code=MON#) 2.63 x10 3/uL 0.4-3.1 BASOPHIL ABSOLUTE (test code=BASO#) 0.00 x10 3/uL 0.0-0.2 EOSINOPHIL ABSOLUTE (test code=EOS#) 0.00 x10 3/uL 0.0-0.5 METAMYELO ABSOLUTE (test code=META#) 0.00 x10 3/uL 0.0-0.0 MYELOCYTE ABSOLUTE (test code=MYELO#) 0.00 x10 3/uL 0.0-0.0 PROMYELOCYTE ABSOLUTE (test code=PROM#) 0.00 x10 3/uL 0.0-0.0 BLASTS ABSOLUTE (test code=BLAST#) 0.00 x10 3/uL 0.0-0.0 OTHER CELLS ABSOLUTE (test code=OCT#) 0.00 x10 3/uL 0.0-0.0 ANISOCYTOSIS (test code=ANISO) Occ PLATELET ESTIMATE (test code=PLTEST) Norm ADEQ CBC W/AUTO [id number] 07:55:00* Test Item Value Reference Range Comments WHITE BLOOD CELL (test code=WBC) 20.24 x10 3/uL 4.80-10.80 RED BLOOD CELL (test code=RBC) 4.22 x10 6/uL 4.2-5.4 HEMOGLOBIN (test code=HGB) 11.3 G/DL 12.0-16.0 HEMATOCRIT (test code=HCT) 35.5 % 37-47 MEAN CELL VOLUME (test code=MCV) 84.1 FL 81-99 MEAN CELL HGB (test code=MCH) 26.8 PG 27-31 MEAN CELL HGB CONCENTRATION (test code=MCHC) 31.8 G/DL 33-37 RED CELL DISTRIBUTION WIDTH (test code=RDW) 15.7 % 11.5-14.5 PLATELET COUNT (test code=PLT) 471 x10 3/uL 150-450 MEAN PLATELET VOLUME (test code=MPV) 8.9 FL 7.4-10.4 NEUTROPHIL % (test code=NT%) % 42-86 IMMATURE GRANULOCYTE % (test code=IG%) % 0.0-2.0 LYMPHOCYTE % (test code=LY%) % 24-44 MONOCYTE % (test code=MO%) % 0.0-4.0 EOSINOPHIL % (test code=EO%) % 0.0-2.7 BASOPHIL % (test code=BA%) % 0.0-0.5 NUCLEATED RBC % (test code=NRBC%) % 0.0-0.0 NEUTROPHIL # (test code=NT#) x10 3/uL 1.8-7.7 IMMATURE GRANULOCYTE # (test code=IG#) x10 3/uL 0.00-0.03 LYMPHOCYTE # (test code=LY#) x10 3/uL 1.0-4.8 MONOCYTE # (test code=MO#) x10 3/uL 0.0-0.8 EOSINOPHIL # (test code=EO#) x10 3/uL 0.0-0.5 BASOPHIL # (test code=BA#) x10 3/uL 0.0-0.2 NUCLEATED RBC # (test code=NRBC#) X10 3/uL 0.0-0.2 MANUAL DIFF REQUIRED (test code=MDIFF) ADD MANUAL DIFF TECH REVIEW WBC [id number] 07:55:00* Test Item Value Reference Range Comments RBC MORPHOLOGY COMMENT (test code=RBCM) PLATELET ESTIMATE (test code=PLTEST) ADEQ CBC W/AUTO [id number] 07:55:00* Test Item Value Reference Range Comments WHITE BLOOD CELL (test code=WBC) 20.24 x10 3/uL 4.80-10.80 RED BLOOD CELL (test code=RBC) 4.22 x10 6/uL 4.2-5.4 HEMOGLOBIN (test code=HGB) 11.3 G/DL 12.0-16.0 HEMATOCRIT (test code=HCT) 35.5 % 37-47 MEAN CELL VOLUME (test code=MCV) 84.1 FL 81-99 MEAN CELL HGB (test code=MCH) 26.8 PG 27-31 MEAN CELL HGB CONCENTRATION (test code=MCHC) 31.8 G/DL 33-37 RED CELL DISTRIBUTION WIDTH (test code=RDW) 15.7 % 11.5-14.5 PLATELET COUNT (test code=PLT) 471 x10 3/uL 150-450 MEAN PLATELET VOLUME (test code=MPV) 8.9 FL 7.4-10.4 NEUTROPHIL % (test code=NT%) % 42-86 IMMATURE GRANULOCYTE % (test code=IG%) % 0.0-2.0 LYMPHOCYTE % (test code=LY%) % 24-44 MONOCYTE % (test code=MO%) % 0.0-4.0 EOSINOPHIL % (test code=EO%) % 0.0-2.7 BASOPHIL % (test code=BA%) % 0.0-0.5 NUCLEATED RBC % (test code=NRBC%) % 0.0-0.0 NEUTROPHIL # (test code=NT#) x10 3/uL 1.8-7.7 IMMATURE GRANULOCYTE # (test code=IG#) x10 3/uL 0.00-0.03 LYMPHOCYTE # (test code=LY#) x10 3/uL 1.0-4.8 MONOCYTE # (test code=MO#) x10 3/uL 0.0-0.8 EOSINOPHIL # (test code=EO#) x10 3/uL 0.0-0.5 BASOPHIL # (test code=BA#) x10 3/uL 0.0-0.2 NUCLEATED RBC # (test code=NRBC#) X10 3/uL 0.0-0.2 MANUAL DIFF REQUIRED (test code=MDIFF) ADD MANUAL DIFF TECH REVIEW WBC [id number] 07:55:00* Test Item Value Reference Range Comments RBC MORPHOLOGY COMMENT (test code=RBCM) PLATELET ESTIMATE (test code=PLTEST) ADEQ PROTHROMBIN [id number] 06:20:00* Test Item Value Reference Range Comments PROTHROMBIN TIME PATIENT (test code=PTP) 15.2 SECONDS 9.6-12.3 INTERNATIONAL NORMAL RATIO (test code=INR) 1.36 Recommended INR range (warfarin therapy): 2.0 - 3.0INR (International Normalized Ratio) should beused when interpreting oral anticoaglulant therapy. For atrial fibrillation and treatment orprevention of deep vein thrombosis. Patients with Palmaz-Peggy stent *: 2.0 - 3.0 Patients with mechanical heart valve *: 2.5 - 3.5 Patients with flex-stent *: 3.0 - 4.0(*)=chief human resources officer's suggested range Is patient on anticoagulants? No AnticoagulantsBASIC METABOLIC [id number] 06:17:00* Test Item Value Reference Range Comments SODIUM (test code=NA) 140 MMOL/L 133-145 POTASSIUM (test code=K) 3.3 MMOL/L 3.6-5.2 CHLORIDE (test code=CL) 101 MMOL/L 100-108 CARBON DIOXIDE (test code=CO2) 27 MMOL/L 22-32 GLUCOSE (test code=GLU) 117 MG/DL 65-99 Results of this assay method may be falsely depressed orelevated if patient is taking sulfasalazine. BLOOD UREA NITROGEN (test code=BUN) 6 MG/DL 6-20 GLOMERULAR FILTRATION RATE (test code=GFR) 73 45-104 Reporting units: mL/min/1.73m\S\2 (Modified MDRD Formula) CREATININE (test code=CREAT) 0.79 MG/DL 0.60-1.00 CALCIUM (test code=CA) 8.6 MG/DL 8.7-10.5 [id number] 06:17:00* Test Item Value Reference Range Comments MAGNESIUM (test code=MAG) 2.3 MG/DL 1.8-2.4 CBC W/AUTO [id number] 05:57:00* Test Item Value Reference Range Comments WHITE BLOOD CELL (test code=WBC) 20.24 x10 3/uL 4.80-10.80 RED BLOOD CELL (test code=RBC) 4.22 x10 6/uL 4.2-5.4 HEMOGLOBIN (test code=HGB) 11.3 G/DL 12.0-16.0 HEMATOCRIT (test code=HCT) 35.5 % 37-47 MEAN CELL VOLUME (test code=MCV) 84.1 FL 81-99 MEAN CELL HGB (test code=MCH) 26.8 PG 27-31 MEAN CELL HGB CONCENTRATION (test code=MCHC) 31.8 G/DL 33-37 RED CELL DISTRIBUTION WIDTH (test code=RDW) 15.7 % 11.5-14.5 PLATELET COUNT (test code=PLT) 471 x10 3/uL 150-450 MEAN PLATELET VOLUME (test code=MPV) 8.9 FL 7.4-10.4 NEUTROPHIL % (test code=NT%) % 42-86 IMMATURE GRANULOCYTE % (test code=IG%) % 0.0-2.0 LYMPHOCYTE % (test code=LY%) % 24-44 MONOCYTE % (test code=MO%) % 0.0-4.0 EOSINOPHIL % (test code=EO%) % 0.0-2.7 BASOPHIL % (test code=BA%) % 0.0-0.5 NUCLEATED RBC % (test code=NRBC%) % 0.0-0.0 NEUTROPHIL # (test code=NT#) x10 3/uL 1.8-7.7 IMMATURE GRANULOCYTE # (test code=IG#) x10 3/uL 0.00-0.03 LYMPHOCYTE # (test code=LY#) x10 3/uL 1.0-4.8 MONOCYTE # (test code=MO#) x10 3/uL 0.0-0.8 EOSINOPHIL # (test code=EO#) x10 3/uL 0.0-0.5 BASOPHIL # (test code=BA#) x10 3/uL 0.0-0.2 NUCLEATED RBC # (test code=NRBC#) X10 3/uL 0.0-0.2 CBC W/AUTO [id number] 09:19:00* Test Item Value Reference Range Comments WHITE BLOOD CELL (test code=WBC) 17.28 x10 3/uL 4.80-10.80 RED BLOOD CELL (test code=RBC) 4.31 x10 6/uL 4.2-5.4 HEMOGLOBIN (test code=HGB) 11.5 G/DL 12.0-16.0 HEMATOCRIT (test code=HCT) 36.2 % 37-47 MEAN CELL VOLUME (test code=MCV) 84.0 FL 81-99 MEAN CELL HGB (test code=MCH) 26.7 PG 27-31 MEAN CELL HGB CONCENTRATION (test code=MCHC) 31.8 G/DL 33-37 RED CELL DISTRIBUTION WIDTH (test code=RDW) 15.3 % 11.5-14.5 PLATELET COUNT (test code=PLT) 508 x10 3/uL 150-450 MEAN PLATELET VOLUME (test code=MPV) 8.6 FL 7.4-10.4 MANUAL DIFF REQUIRED (test code=MDIFF) ADD MANUAL DIFF TECH REVIEW WBC [id number] 09:19:00* Test Item Value Reference Range Comments TOTAL CELLS COUNTED (test code=TCC) 100 #CELLS SEGMENTED NEUTROPHILS (test code=SEG) 73 % 42-86 LYMPHOCYTE (test code=LYMPH) 15 % 24-44 MONOCYTE (test code=MON) 10 % 0-4 BASOPHIL (test code=BASO) 1 % 0-0.5 METAMYELOCYTE (test code=META) 1 % 0-0 BAND ABSOLUTE (test code=BAND#) 0.00 x10 3/uL 0.0-0.7 NEUTROPHIL ABSOLUTE (test code=NEUTR#) 12.61 x10 3/uL 6.0-26.0 LYMPH ABSOLUTE (test code=LYMPH#) 2.59 x10 3/uL 2.0-17.0 ATYPICAL LYMPH ABSOLUTE (test code=ALYMPH#) 0.00 x10 3/uL 0.0-0.0 MONOCYTE ABSOLUTE (test code=MON#) 1.72 x10 3/uL 0.4-3.1 BASOPHIL ABSOLUTE (test code=BASO#) 0.17 x10 3/uL 0.0-0.2 EOSINOPHIL ABSOLUTE (test code=EOS#) 0.00 x10 3/uL 0.0-0.5 METAMYELO ABSOLUTE (test code=META#) 0.17 x10 3/uL 0.0-0.0 MYELOCYTE ABSOLUTE (test code=MYELO#) 0.00 x10 3/uL 0.0-0.0 PROMYELOCYTE ABSOLUTE (test code=PROM#) 0.00 x10 3/uL 0.0-0.0 BLASTS ABSOLUTE (test code=BLAST#) 0.00 x10 3/uL 0.0-0.0 OTHER CELLS ABSOLUTE (test code=OCT#) 0.00 x10 3/uL 0.0-0.0 ANISOCYTOSIS (test code=ANISO) 1+ PLATELET ESTIMATE (test code=PLTEST) Inc ADEQ BASIC METABOLIC [id number] 08:08:00* Test Item Value Reference Range Comments SODIUM (test code=NA) 140 MMOL/L 133-145 POTASSIUM (test code=K) 3.4 MMOL/L 3.6-5.2 CHLORIDE (test code=CL) 101 MMOL/L 100-108 CARBON DIOXIDE (test code=CO2) 23 MMOL/L 22-32 GLUCOSE (test code=GLU) 107 MG/DL 65-99 Results of this assay method may be falsely depressed orelevated if patient is taking sulfasalazine. BLOOD UREA NITROGEN (test code=BUN) 4 MG/DL 6-20 GLOMERULAR FILTRATION RATE (test code=GFR) 91 45-104 Reporting units: mL/min/1.73m\S\2 (Modified MDRD Formula) CREATININE (test code=CREAT) 0.65 MG/DL 0.60-1.00 CALCIUM (test code=CA) 8.7 MG/DL 8.7-10.5 [id number] 08:08:00* Test Item Value Reference Range Comments PHOSPHOROUS (test code=PHOS) 4.2 MG/DL 2.5-4.9 [id number] 08:08:00* Test Item Value Reference Range Comments MAGNESIUM (test code=MAG) 1.8 MG/DL 1.8-2.4 CBC W/AUTO [id number] 07:51:00* Test Item Value Reference Range Comments WHITE BLOOD CELL (test code=WBC) 17.28 x10 3/uL 4.80-10.80 RED BLOOD CELL (test code=RBC) 4.31 x10 6/uL 4.2-5.4 HEMOGLOBIN (test code=HGB) 11.5 G/DL 12.0-16.0 HEMATOCRIT (test code=HCT) 36.2 % 37-47 MEAN CELL VOLUME (test code=MCV) 84.0 FL 81-99 MEAN CELL HGB (test code=MCH) 26.7 PG 27-31 MEAN CELL HGB CONCENTRATION (test code=MCHC) 31.8 G/DL 33-37 RED CELL DISTRIBUTION WIDTH (test code=RDW) 15.3 % 11.5-14.5 PLATELET COUNT (test code=PLT) 508 x10 3/uL 150-450 MEAN PLATELET VOLUME (test code=MPV) 8.6 FL 7.4-10.4 NEUTROPHIL % (test code=NT%) % 42-86 IMMATURE GRANULOCYTE % (test code=IG%) % 0.0-2.0 LYMPHOCYTE % (test code=LY%) % 24-44 MONOCYTE % (test code=MO%) % 0.0-4.0 EOSINOPHIL % (test code=EO%) % 0.0-2.7 BASOPHIL % (test code=BA%) % 0.0-0.5 NUCLEATED RBC % (test code=NRBC%) % 0.0-0.0 NEUTROPHIL # (test code=NT#) x10 3/uL 1.8-7.7 IMMATURE GRANULOCYTE # (test code=IG#) x10 3/uL 0.00-0.03 LYMPHOCYTE # (test code=LY#) x10 3/uL 1.0-4.8 MONOCYTE # (test code=MO#) x10 3/uL 0.0-0.8 EOSINOPHIL # (test code=EO#) x10 3/uL 0.0-0.5 BASOPHIL # (test code=BA#) x10 3/uL 0.0-0.2 NUCLEATED RBC # (test code=NRBC#) X10 3/uL 0.0-0.2 MANUAL DIFF REQUIRED (test code=MDIFF) ADD MANUAL DIFF TECH REVIEW WBC [id number] 07:51:00* Test Item Value Reference Range Comments RBC MORPHOLOGY COMMENT (test code=RBCM) PLATELET ESTIMATE (test code=PLTEST) ADEQ CBC W/AUTO [id number] 07:51:00* Test Item Value Reference Range Comments WHITE BLOOD CELL (test code=WBC) 17.28 x10 3/uL 4.80-10.80 RED BLOOD CELL (test code=RBC) 4.31 x10 6/uL 4.2-5.4 HEMOGLOBIN (test code=HGB) 11.5 G/DL 12.0-16.0 HEMATOCRIT (test code=HCT) 36.2 % 37-47 MEAN CELL VOLUME (test code=MCV) 84.0 FL 81-99 MEAN CELL HGB (test code=MCH) 26.7 PG 27-31 MEAN CELL HGB CONCENTRATION (test code=MCHC) 31.8 G/DL 33-37 RED CELL DISTRIBUTION WIDTH (test code=RDW) 15.3 % 11.5-14.5 PLATELET COUNT (test code=PLT) 508 x10 3/uL 150-450 MEAN PLATELET VOLUME (test code=MPV) 8.6 FL 7.4-10.4 NEUTROPHIL % (test code=NT%) % 42-86 IMMATURE GRANULOCYTE % (test code=IG%) % 0.0-2.0 LYMPHOCYTE % (test code=LY%) % 24-44 MONOCYTE % (test code=MO%) % 0.0-4.0 EOSINOPHIL % (test code=EO%) % 0.0-2.7 BASOPHIL % (test code=BA%) % 0.0-0.5 NUCLEATED RBC % (test code=NRBC%) % 0.0-0.0 NEUTROPHIL # (test code=NT#) x10 3/uL 1.8-7.7 IMMATURE GRANULOCYTE # (test code=IG#) x10 3/uL 0.00-0.03 LYMPHOCYTE # (test code=LY#) x10 3/uL 1.0-4.8 MONOCYTE # (test code=MO#) x10 3/uL 0.0-0.8 EOSINOPHIL # (test code=EO#) x10 3/uL 0.0-0.5 BASOPHIL # (test code=BA#) x10 3/uL 0.0-0.2 NUCLEATED RBC # (test code=NRBC#) X10 3/uL 0.0-0.2 MANUAL DIFF REQUIRED (test code=MDIFF) ADD MANUAL DIFF TECH REVIEW WBC [id number] 07:51:00* Test Item Value Reference Range Comments RBC MORPHOLOGY COMMENT (test code=RBCM) PLATELET ESTIMATE (test code=PLTEST) ADEQ BASIC METABOLIC [id number] 06:01:00* Test Item Value Reference Range Comments SODIUM (test code=NA) 138 MMOL/L 133-145 POTASSIUM (test code=K) 3.6 MMOL/L 3.6-5.2 CHLORIDE (test code=CL) 101 MMOL/L 100-108 CARBON DIOXIDE (test code=CO2) 23 MMOL/L 22-32 GLUCOSE (test code=GLU) 110 MG/DL 65-99 Results of this assay method may be falsely depressed orelevated if patient is taking sulfasalazine. BLOOD UREA NITROGEN (test code=BUN) 7 MG/DL 6-20 GLOMERULAR FILTRATION RATE (test code=GFR) 84 45-104 Reporting units: mL/min/1.73m\S\2 (Modified MDRD Formula) CREATININE (test code=CREAT) 0.70 MG/DL 0.60-1.00 CALCIUM (test code=CA) 8.4 MG/DL 8.7-10.5 [id number] 06:01:00* Test Item Value Reference Range Comments PHOSPHOROUS (test code=PHOS) 3.1 MG/DL 2.5-4.9 [id number] 06:01:00* Test Item Value Reference Range Comments MAGNESIUM (test code=MAG) 1.9 MG/DL 1.8-2.4 CBC W/AUTO [id number] 05:49:00* Test Item Value Reference Range Comments WHITE BLOOD CELL (test code=WBC) 18.75 x10 3/uL 4.80-10.80 RED BLOOD CELL (test code=RBC) 3.99 x10 6/uL 4.2-5.4 HEMOGLOBIN (test code=HGB) 10.7 G/DL 12.0-16.0 HEMATOCRIT (test code=HCT) 32.9 % 37-47 MEAN CELL VOLUME (test code=MCV) 82.5 FL 81-99 MEAN CELL HGB (test code=MCH) 26.8 PG 27-31 MEAN CELL HGB CONCENTRATION (test code=MCHC) 32.5 G/DL 33-37 RED CELL DISTRIBUTION WIDTH (test code=RDW) 15.0 % 11.5-14.5 PLATELET COUNT (test code=PLT) 561 x10 3/uL 150-450 MEAN PLATELET VOLUME (test code=MPV) 9.1 FL 7.4-10.4 MANUAL DIFF REQUIRED (test code=MDIFF) ADD MANUAL DIFF TECH REVIEW WBC [id number] 05:49:00* Test Item Value Reference Range Comments RBC MORPHOLOGY COMMENT (test code=RBCM) Normal TOTAL CELLS COUNTED (test code=TCC) 100 #CELLS SEGMENTED NEUTROPHILS (test code=SEG) 79 % 42-86 BAND NEUTROPHIL (test code=BAND) 1 % 0-11 LYMPHOCYTE (test code=LYMPH) 10 % 24-44 MONOCYTE (test code=MON) 10 % 0-4 BAND ABSOLUTE (test code=BAND#) 0.18 x10 3/uL 0.0-0.7 NEUTROPHIL ABSOLUTE (test code=NEUTR#) 14.81 x10 3/uL 6.0-26.0 LYMPH ABSOLUTE (test code=LYMPH#) 1.87 x10 3/uL 2.0-17.0 ATYPICAL LYMPH ABSOLUTE (test code=ALYMPH#) 0.00 x10 3/uL 0.0-0.0 MONOCYTE ABSOLUTE (test code=MON#) 1.87 x10 3/uL 0.4-3.1 BASOPHIL ABSOLUTE (test code=BASO#) 0.00 x10 3/uL 0.0-0.2 EOSINOPHIL ABSOLUTE (test code=EOS#) 0.00 x10 3/uL 0.0-0.5 METAMYELO ABSOLUTE (test code=META#) 0.00 x10 3/uL 0.0-0.0 MYELOCYTE ABSOLUTE (test code=MYELO#) 0.00 x10 3/uL 0.0-0.0 PROMYELOCYTE ABSOLUTE (test code=PROM#) 0.00 x10 3/uL 0.0-0.0 BLASTS ABSOLUTE (test code=BLAST#) 0.00 x10 3/uL 0.0-0.0 OTHER CELLS ABSOLUTE (test code=OCT#) 0.00 x10 3/uL 0.0-0.0 PLATELET ESTIMATE (test code=PLTEST) Norm ADEQ CBC W/AUTO [id number] 05:06:00* Test Item Value Reference Range Comments WHITE BLOOD CELL (test code=WBC) 18.75 x10 3/uL 4.80-10.80 RED BLOOD CELL (test code=RBC) 3.99 x10 6/uL 4.2-5.4 HEMOGLOBIN (test code=HGB) 10.7 G/DL 12.0-16.0 HEMATOCRIT (test code=HCT) 32.9 % 37-47 MEAN CELL VOLUME (test code=MCV) 82.5 FL 81-99 MEAN CELL HGB (test code=MCH) 26.8 PG 27-31 MEAN CELL HGB CONCENTRATION (test code=MCHC) 32.5 G/DL 33-37 RED CELL DISTRIBUTION WIDTH (test code=RDW) 15.0 % 11.5-14.5 PLATELET COUNT (test code=PLT) 561 x10 3/uL 150-450 MEAN PLATELET VOLUME (test code=MPV) 9.1 FL 7.4-10.4 NEUTROPHIL % (test code=NT%) % 42-86 IMMATURE GRANULOCYTE % (test code=IG%) % 0.0-2.0 LYMPHOCYTE % (test code=LY%) % 24-44 MONOCYTE % (test code=MO%) % 0.0-4.0 EOSINOPHIL % (test code=EO%) % 0.0-2.7 BASOPHIL % (test code=BA%) % 0.0-0.5 NUCLEATED RBC % (test code=NRBC%) % 0.0-0.0 NEUTROPHIL # (test code=NT#) x10 3/uL 1.8-7.7 IMMATURE GRANULOCYTE # (test code=IG#) x10 3/uL 0.00-0.03 LYMPHOCYTE # (test code=LY#) x10 3/uL 1.0-4.8 MONOCYTE # (test code=MO#) x10 3/uL 0.0-0.8 EOSINOPHIL # (test code=EO#) x10 3/uL 0.0-0.5 BASOPHIL # (test code=BA#) x10 3/uL 0.0-0.2 NUCLEATED RBC # (test code=NRBC#) X10 3/uL 0.0-0.2 MANUAL DIFF REQUIRED (test code=MDIFF) ADD MANUAL DIFF TECH REVIEW WBC [id number] 05:06:00* Test Item Value Reference Range Comments RBC MORPHOLOGY COMMENT (test code=RBCM) PLATELET ESTIMATE (test code=PLTEST) ADEQ CBC W/AUTO [id number] 05:06:00* Test Item Value Reference Range Comments WHITE BLOOD CELL (test code=WBC) 18.75 x10 3/uL 4.80-10.80 RED BLOOD CELL (test code=RBC) 3.99 x10 6/uL 4.2-5.4 HEMOGLOBIN (test code=HGB) 10.7 G/DL 12.0-16.0 HEMATOCRIT (test code=HCT) 32.9 % 37-47 MEAN CELL VOLUME (test code=MCV) 82.5 FL 81-99 MEAN CELL HGB (test code=MCH) 26.8 PG 27-31 MEAN CELL HGB CONCENTRATION (test code=MCHC) 32.5 G/DL 33-37 RED CELL DISTRIBUTION WIDTH (test code=RDW) 15.0 % 11.5-14.5 PLATELET COUNT (test code=PLT) 561 x10 3/uL 150-450 MEAN PLATELET VOLUME (test code=MPV) 9.1 FL 7.4-10.4 NEUTROPHIL % (test code=NT%) % 42-86 IMMATURE GRANULOCYTE % (test code=IG%) % 0.0-2.0 LYMPHOCYTE % (test code=LY%) % 24-44 MONOCYTE % (test code=MO%) % 0.0-4.0 EOSINOPHIL % (test code=EO%) % 0.0-2.7 BASOPHIL % (test code=BA%) % 0.0-0.5 NUCLEATED RBC % (test code=NRBC%) % 0.0-0.0 NEUTROPHIL # (test code=NT#) x10 3/uL 1.8-7.7 IMMATURE GRANULOCYTE # (test code=IG#) x10 3/uL 0.00-0.03 LYMPHOCYTE # (test code=LY#) x10 3/uL 1.0-4.8 MONOCYTE # (test code=MO#) x10 3/uL 0.0-0.8 EOSINOPHIL # (test code=EO#) x10 3/uL 0.0-0.5 BASOPHIL # (test code=BA#) x10 3/uL 0.0-0.2 NUCLEATED RBC # (test code=NRBC#) X10 3/uL 0.0-0.2 MANUAL DIFF REQUIRED (test code=MDIFF) ADD MANUAL DIFF TECH REVIEW WBC [id number] 05:06:00* Test Item Value Reference Range Comments RBC MORPHOLOGY COMMENT (test code=RBCM) PLATELET ESTIMATE (test code=PLTEST) ADEQ PROCALCITONIN (PCT)2018-11-06 14:29:00* Test Item Value Reference Range Comments PROCALCITONIN (PCT) (test code=PROCAL) 0.26 ng/mL 0.00-0.50 COMPREHENSIVE METABOLIC [id number] 05:54:00* Test Item Value Reference Range Comments SODIUM (test code=NA) 140 MMOL/L 133-145 POTASSIUM (test code=K) 2.8 MMOL/L 3.6-5.2 CHLORIDE (test code=CL) 102 MMOL/L 100-108 CARBON DIOXIDE (test code=CO2) 30 MMOL/L 22-32 GLUCOSE (test code=GLU) 121 MG/DL 65-99 Results of this assay method may be falsely depressed orelevated if patient is taking sulfasalazine. BLOOD UREA NITROGEN (test code=BUN) 4 MG/DL 6-20 GLOMERULAR FILTRATION RATE (test code=GFR) 95 45-104 Reporting units: mL/min/1.73m\S\2 (Modified MDRD Formula) CREATININE (test code=CREAT) 0.63 MG/DL 0.60-1.00 TOTAL PROTEIN (test code=PROT) 6.9 G/DL 6.4-8.2 ALBUMIN (test code=ALB) 2.1 G/DL 3.4-5.0 GLOBULIN (test code=GLOB) 4.8 G/DL 1.5-3.8 ALBUMIN/GLOBULIN RATIO (test code=A/G) 0.4 1.1-2.2 CALCIUM (test code=CA) 8.6 MG/DL 8.7-10.5 BILIRUBIN TOTAL (test code=BILT) 0.5 MG/DL 0.0-1.0 SGOT/AST (test code=AST) 14 Units/L 15-37 Results of this assay method may be falsely depressed orelevated if patient is taking sulfasalazine. SGPT/ALT (test code=ALT) 15 Units/L 30-65 Results of this assay method may be falsely depressed orelevated if patient is taking sulfasalazine. ALKALINE PHOSPHATASE TOTAL (test code=ALKP) 106 Units/L 50-136 : [id number] 05:54:00* Test Item Value Reference Range Comments PHOSPHOROUS (test code=PHOS) 3.7 MG/DL 2.5-4.9 : [id number] 05:54:00* Test Item Value Reference Range Comments MAGNESIUM (test code=MAG) 1.7 MG/DL 1.8-2.4 : CV CALL [id number] 05:54:00* Test Item Value Reference Range Comments CV CALL CHEM (test code=CVC) Called Results called to and read back by ALEX CASTREJON RN;.for analyte(s): K .at 55311/06/18; by JOLENEBVP. : COMPREHENSIVE METABOLIC [id number] 05:53:00* Test Item Value Reference Range Comments SODIUM (test code=NA) 140 MMOL/L 133-145 POTASSIUM (test code=K) 2.8 MMOL/L 3.6-5.2 CHLORIDE (test code=CL) 102 MMOL/L 100-108 CARBON DIOXIDE (test code=CO2) 30 MMOL/L 22-32 GLUCOSE (test code=GLU) 121 MG/DL 65-99 Results of this assay method may be falsely depressed orelevated if patient is taking sulfasalazine. BLOOD UREA NITROGEN (test code=BUN) 4 MG/DL 6-20 GLOMERULAR FILTRATION RATE (test code=GFR) 95 45-104 Reporting units: mL/min/1.73m\S\2 (Modified MDRD Formula) CREATININE (test code=CREAT) 0.63 MG/DL 0.60-1.00 TOTAL PROTEIN (test code=PROT) 6.9 G/DL 6.4-8.2 ALBUMIN (test code=ALB) 2.1 G/DL 3.4-5.0 GLOBULIN (test code=GLOB) 4.8 G/DL 1.5-3.8 ALBUMIN/GLOBULIN RATIO (test code=A/G) 0.4 1.1-2.2 CALCIUM (test code=CA) 8.6 MG/DL 8.7-10.5 BILIRUBIN TOTAL (test code=BILT) 0.5 MG/DL 0.0-1.0 SGOT/AST (test code=AST) 14 Units/L 15-37 Results of this assay method may be falsely depressed orelevated if patient is taking sulfasalazine. SGPT/ALT (test code=ALT) 15 Units/L 30-65 Results of this assay method may be falsely depressed orelevated if patient is taking sulfasalazine. ALKALINE PHOSPHATASE TOTAL (test code=ALKP) 106 Units/L 50-136 : [id number] 05:53:00* Test Item Value Reference Range Comments PHOSPHOROUS (test code=PHOS) 3.7 MG/DL 2.5-4.9 : [id number] 05:53:00* Test Item Value Reference Range Comments MAGNESIUM (test code=MAG) 1.7 MG/DL 1.8-2.4 : CV CALL [id number] 05:53:00* Test Item Value Reference Range Comments CV CALL CHEM (test code=CVC) : CBC W/MANUAL [id number] 05:18:00* Test Item Value Reference Range Comments WHITE BLOOD CELL (test code=WBC) 17.30 x10 3/uL 4.80-10.80 RED BLOOD CELL (test code=RBC) 4.08 x10 6/uL 4.2-5.4 HEMOGLOBIN (test code=HGB) 10.9 G/DL 12.0-16.0 HEMATOCRIT (test code=HCT) 34.0 % 37-47 MEAN CELL VOLUME (test code=MCV) 83.3 FL 81-99 MEAN CELL HGB (test code=MCH) 26.7 PG 27-31 MEAN CELL HGB CONCENTRATION (test code=MCHC) 32.1 G/DL 33-37 RED CELL DISTRIBUTION WIDTH (test code=RDW) 15.1 % 11.5-14.5 PLATELET COUNT (test code=PLT) 513 x10 3/uL 150-450 MEAN PLATELET VOLUME (test code=MPV) 9.1 FL 7.4-10.4 NEUTROPHIL % (test code=NT%) 75.7 % 42-86 IMMATURE GRANULOCYTE % (test code=IG%) 2.1 % 0.0-2.0 LYMPHOCYTE % (test code=LY%) 12.7 % 24-44 MONOCYTE % (test code=MO%) 7.7 % 0.0-4.0 EOSINOPHIL % (test code=EO%) 1.6 % 0.0-2.7 BASOPHIL % (test code=BA%) 0.2 % 0.0-0.5 NUCLEATED RBC % (test code=NRBC%) 0.0 % 0.0-0.0 NEUTROPHIL # (test code=NT#) 13.08 x10 3/uL 1.8-7.7 IMMATURE GRANULOCYTE # (test code=IG#) 0.36 x10 3/uL 0.00-0.03 LYMPHOCYTE # (test code=LY#) 2.20 x10 3/uL 1.0-4.8 MONOCYTE # (test code=MO#) 1.34 x10 3/uL 0.0-0.8 EOSINOPHIL # (test code=EO#) 0.28 x10 3/uL 0.0-0.5 BASOPHIL # (test code=BA#) 0.04 x10 3/uL 0.0-0.2 NUCLEATED RBC # (test code=NRBC#) 0.0 X10 3/uL 0.0-0.2 RBC MORPHOLOGY COMMENT (test code=RBCM) PLATELET ESTIMATE (test code=PLTEST) ADEQ CBC W/MANUAL [id number] 05:18:00* Test Item Value Reference Range Comments WHITE BLOOD CELL (test code=WBC) 17.30 x10 3/uL 4.80-10.80 RED BLOOD CELL (test code=RBC) 4.08 x10 6/uL 4.2-5.4 HEMOGLOBIN (test code=HGB) 10.9 G/DL 12.0-16.0 HEMATOCRIT (test code=HCT) 34.0 % 37-47 MEAN CELL VOLUME (test code=MCV) 83.3 FL 81-99 MEAN CELL HGB (test code=MCH) 26.7 PG 27-31 MEAN CELL HGB CONCENTRATION (test code=MCHC) 32.1 G/DL 33-37 RED CELL DISTRIBUTION WIDTH (test code=RDW) 15.1 % 11.5-14.5 PLATELET COUNT (test code=PLT) 513 x10 3/uL 150-450 MEAN PLATELET VOLUME (test code=MPV) 9.1 FL 7.4-10.4 NEUTROPHIL % (test code=NT%) 75.7 % 42-86 IMMATURE GRANULOCYTE % (test code=IG%) 2.1 % 0.0-2.0 LYMPHOCYTE % (test code=LY%) 12.7 % 24-44 MONOCYTE % (test code=MO%) 7.7 % 0.0-4.0 EOSINOPHIL % (test code=EO%) 1.6 % 0.0-2.7 BASOPHIL % (test code=BA%) 0.2 % 0.0-0.5 NUCLEATED RBC % (test code=NRBC%) 0.0 % 0.0-0.0 NEUTROPHIL # (test code=NT#) 13.08 x10 3/uL 1.8-7.7 IMMATURE GRANULOCYTE # (test code=IG#) 0.36 x10 3/uL 0.00-0.03 LYMPHOCYTE # (test code=LY#) 2.20 x10 3/uL 1.0-4.8 MONOCYTE # (test code=MO#) 1.34 x10 3/uL 0.0-0.8 EOSINOPHIL # (test code=EO#) 0.28 x10 3/uL 0.0-0.5 BASOPHIL # (test code=BA#) 0.04 x10 3/uL 0.0-0.2 NUCLEATED RBC # (test code=NRBC#) 0.0 X10 3/uL 0.0-0.2 ARTERIAL BLOOD [id number] 04:22:00* Test Item Value Reference Range Comments ARTERIAL BLOOD GAS PH (test code=PHA) 7.47 7.35-7.45 ARTERIAL BLOOD GAS PCO2 (test code=PCO2A) 39.1 mmHg 35.0-45.0 ARTERIAL BLOOD GAS PO2 (test code=PO2A) 96.5 mmHg 60.0-80.0 BICARBONATE TOTAL HCO3 (test code=HCO3) 27.9 mmol/L 20.0-26.0 BASE EXCESS (test code=KARL) 3.8 mmol/L -3.0-3.0 ABG O2 SATURATION (test code=SATA) 97.6 % 95-100 ABG TYPE (test code=TYPEA) Arterial FIO2 (test code=FIO2A) 40.0 % MODE (test code=MODE) VENTI MASK ABG PATIENT RESP RATE (test code=RRPATA) 25.0 /MIN ABG TEMPERATURE (test code=TEMPA) 97.8 F CRISTY TEST (test code=ALN) Yes ABG SITE (test code=SITEA) LR TOTAL HGB (test code=THB) 11.4 G/DL 12.0-16.0 OXYHEMOGLOBIN (test code=OOHGBT) 96.6 % 92.0-98.0 CARBOXYHEMOGLOBIN (test code=HOHGBT) 0.3 % 0.5-1.5 METHEMOGLOBIN (test code=METHGB) 0.7 % 0.4-1.5 ARTERIAL BLOOD [id number] 17:31:00* Test Item Value Reference Range Comments ARTERIAL BLOOD GAS PH (test code=PHA) 7.49 7.35-7.45 ARTERIAL BLOOD GAS PCO2 (test code=PCO2A) 37.2 mmHg 35.0-45.0 ARTERIAL BLOOD GAS PO2 (test code=PO2A) 72.9 mmHg 60.0-80.0 BICARBONATE TOTAL HCO3 (test code=HCO3) 27.5 mmol/L 20.0-26.0 BASE EXCESS (test code=KARL) 4.3 mmol/L -3.0-3.0 ABG O2 SATURATION (test code=SATA) 94.6 % 95-100 ABG TYPE (test code=TYPEA) Arterial FIO2 (test code=FIO2A) 40.0 % MODE (test code=MODE) VENTIMASK ABG PATIENT RESP RATE (test code=RRPATA) 24.0 /MIN ABG TEMPERATURE (test code=TEMPA) 99.8 F CRISTY TEST (test code=ALN) NA ABG SITE (test code=SITEA) RR TOTAL HGB (test code=THB) 12.3 G/DL 12.0-16.0 OXYHEMOGLOBIN (test code=OOHGBT) 93.7 % 92.0-98.0 CARBOXYHEMOGLOBIN (test code=HOHGBT) 0.3 % 0.5-1.5 METHEMOGLOBIN (test code=METHGB) 0.7 % 0.4-1.5 COMPREHENSIVE METABOLIC [id number] 14:45:00* Test Item Value Reference Range Comments SODIUM (test code=NA) 142 MMOL/L 133-145 POTASSIUM (test code=K) 3.5 MMOL/L 3.6-5.2 CHLORIDE (test code=CL) 104 MMOL/L 100-108 CARBON DIOXIDE (test code=CO2) 26 MMOL/L 22-32 GLUCOSE (test code=GLU) 113 MG/DL 65-99 Results of this assay method may be falsely depressed orelevated if patient is taking sulfasalazine. BLOOD UREA NITROGEN (test code=BUN) 5 MG/DL 6-20 GLOMERULAR FILTRATION RATE (test code=GFR) 87 45-104 Reporting units: mL/min/1.73m\S\2 (Modified MDRD Formula) CREATININE (test code=CREAT) 0.68 MG/DL 0.60-1.00 TOTAL PROTEIN (test code=PROT) 6.9 G/DL 6.4-8.2 ALBUMIN (test code=ALB) 2.0 G/DL 3.4-5.0 GLOBULIN (test code=GLOB) 4.9 G/DL 1.5-3.8 ALBUMIN/GLOBULIN RATIO (test code=A/G) 0.4 1.1-2.2 CALCIUM (test code=CA) 8.9 MG/DL 8.7-10.5 BILIRUBIN TOTAL (test code=BILT) 0.3 MG/DL 0.0-1.0 SGOT/AST (test code=AST) 16 Units/L 15-37 Results of this assay method may be falsely depressed orelevated if patient is taking sulfasalazine. SGPT/ALT (test code=ALT) 14 Units/L 30-65 Results of this assay method may be falsely depressed orelevated if patient is taking sulfasalazine. ALKALINE PHOSPHATASE TOTAL (test code=ALKP) 123 Units/L 50-136 [id number] 14:45:00* Test Item Value Reference Range Comments PHOSPHOROUS (test code=PHOS) 4.4 MG/DL 2.5-4.9 [id number] 14:45:00* Test Item Value Reference Range Comments MAGNESIUM (test code=MAG) 1.9 MG/DL 1.8-2.4 VANCOMYCIN [id number] 14:21:00* Test Item Value Reference Range Comments VANCOMYCIN RANDOM (test code=VANCO) 7.4 MCG/ML No Ref Range No reference range for random specimen collection. ARTERIAL BLOOD [id number] 14:15:00* Test Item Value Reference Range Comments ARTERIAL BLOOD GAS PH (test code=PHA) 7.48 7.35-7.45 ARTERIAL BLOOD GAS PCO2 (test code=PCO2A) 38.2 mmHg 35.0-45.0 ARTERIAL BLOOD GAS PO2 (test code=PO2A) 70.2 mmHg 60.0-80.0 BICARBONATE TOTAL HCO3 (test code=HCO3) 27.9 mmol/L 20.0-26.0 BASE EXCESS (test code=KARL) 4.3 mmol/L -3.0-3.0 ABG O2 SATURATION (test code=SATA) 94.4 % 95-100 ABG TYPE (test code=TYPEA) Arterial FIO2 (test code=FIO2A) 40.0 % MODE (test code=MODE) CPAP ABG PATIENT RESP RATE (test code=RRPATA) 20.0 /MIN ABG PAT TIDAL VOLUME (test code=VTPAT) 480 ml ABG PEEP (test code=PEEPA) 5.0 cmH2O ABG PRESSURE SUPPORT (test code=PSABG) 10 cmH2O ABG TEMPERATURE (test code=TEMPA) 98.6 F CRISTY TEST (test code=ALN) Yes ABG SITE (test code=SITEA) RR TOTAL HGB (test code=THB) 11.8 G/DL 12.0-16.0 OXYHEMOGLOBIN (test code=OOHGBT) 93.5 % 92.0-98.0 CARBOXYHEMOGLOBIN (test code=HOHGBT) 0.3 % 0.5-1.5 METHEMOGLOBIN (test code=METHGB) 0.7 % 0.4-1.5 CBC W/AUTO [id number] 14:05:00* Test Item Value Reference Range Comments WHITE BLOOD CELL (test code=WBC) 20.37 x10 3/uL 4.80-10.80 RED BLOOD CELL (test code=RBC) 4.11 x10 6/uL 4.2-5.4 HEMOGLOBIN (test code=HGB) 11.1 G/DL 12.0-16.0 HEMATOCRIT (test code=HCT) 34.7 % 37-47 MEAN CELL VOLUME (test code=MCV) 84.4 FL 81-99 MEAN CELL HGB (test code=MCH) 27.0 PG 27-31 MEAN CELL HGB CONCENTRATION (test code=MCHC) 32.0 G/DL 33-37 RED CELL DISTRIBUTION WIDTH (test code=RDW) 15.5 % 11.5-14.5 PLATELET COUNT (test code=PLT) 534 x10 3/uL 150-450 MEAN PLATELET VOLUME (test code=MPV) 9.2 FL 7.4-10.4 NEUTROPHIL % (test code=NT%) 78.0 % 42-86 IMMATURE GRANULOCYTE % (test code=IG%) 2.2 % 0.0-2.0 LYMPHOCYTE % (test code=LY%) 11.4 % 24-44 MONOCYTE % (test code=MO%) 6.7 % 0.0-4.0 EOSINOPHIL % (test code=EO%) 1.5 % 0.0-2.7 BASOPHIL % (test code=BA%) 0.2 % 0.0-0.5 NUCLEATED RBC % (test code=NRBC%) 0.0 % 0.0-0.0 NEUTROPHIL # (test code=NT#) 15.90 x10 3/uL 1.8-7.7 IMMATURE GRANULOCYTE # (test code=IG#) 0.44 x10 3/uL 0.00-0.03 LYMPHOCYTE # (test code=LY#) 2.32 x10 3/uL 1.0-4.8 MONOCYTE # (test code=MO#) 1.36 x10 3/uL 0.0-0.8 EOSINOPHIL # (test code=EO#) 0.30 x10 3/uL 0.0-0.5 BASOPHIL # (test code=BA#) 0.05 x10 3/uL 0.0-0.2 NUCLEATED RBC # (test code=NRBC#) 0.0 X10 3/uL 0.0-0.2 : - XR CHEST 1 [id number] 08:01:00 Patient Name: SILVINO GAGNON Unit No: [id number] EXAMS: CPT CODE: [id number] XR CHEST 1 V [id number] Reason: VEMNTED History: Ventilated. Date: 11/05/2018 at 0402 hours. A frontal portable chest compared with 11/04/2018 shows improving aeration in the left lung diffusely and in the upper right lung. Dense consolidation of the hilum and mid to lower right lung is similar in appearance. Nasogastric tube is unchanged. Endotracheal tube tip lies at the thoracic inlet at the midclavicular level. Generous body habitus is stable. IMPRESSION: 1. Mild improved aeration of the left lung and upper right lung with persistent consolidation in the mid to lower right lung. 2. Stable tubes, lines in generous body habitus. at 0801 Reported and signed by: Christo Jurado MD CC: Kb Acosta MD Technologist: Trisha Galvan RT Trscrpt Dt/ (08)Nadira Orig Print D/T: S: 11/05/2018 (0804) [facility] NAME: SILVINO GAGNON [facility] [facility] PHYS: Kb Barkley MD [facility] [place] [address] : 1950 AGE: 68 SEX: F LOC: D.DCI 7 PHONE #: [phone] EXAM DATE: 11/05/2018 STAT US: ADM IN FAX #: RAD NO: DC Dt: PAGE 1 Signed Report ARTERIAL BLOOD [id number] 13:31:00* Test Item Value Reference Range Comments ARTERIAL BLOOD GAS PH (test code=PHA) 7.44 7.35-7.45 ARTERIAL BLOOD GAS PCO2 (test code=PCO2A) 41.4 mmHg 35.0-45.0 ARTERIAL BLOOD GAS PO2 (test code=PO2A) 91.4 mmHg 60.0-80.0 BICARBONATE TOTAL HCO3 (test code=HCO3) 27.4 mmol/L 20.0-26.0 BASE EXCESS (test code=KARL) 3.1 mmol/L -3.0-3.0 ABG O2 SATURATION (test code=SATA) 97.1 % 95-100 ABG TYPE (test code=TYPEA) Arterial FIO2 (test code=FIO2A) 40.0 % MODE (test code=MODE) CPAP ABG PATIENT RESP RATE (test code=RRPATA) 22.0 /MIN ABG PAT TIDAL VOLUME (test code=VTPAT) 320 ml ABG PEEP (test code=PEEPA) 5.0 cmH2O ABG PRESSURE SUPPORT (test code=PSABG) 5 cmH2O ABG TEMPERATURE (test code=TEMPA) 99.0 F CRISTY TEST (test code=ALN) Yes ABG SITE (test code=SITEA) RR TOTAL HGB (test code=THB) 11.4 G/DL 12.0-16.0 OXYHEMOGLOBIN (test code=OOHGBT) 96.1 % 92.0-98.0 CARBOXYHEMOGLOBIN (test code=HOHGBT) 0.3 % 0.5-1.5 METHEMOGLOBIN (test code=METHGB) 0.7 % 0.4-1.5 PROTHROMBIN [id number] 09:43:00* Test Item Value Reference Range Comments PROTHROMBIN TIME PATIENT (test code=PTP) 16.2 SECONDS 9.6-12.3 INTERNATIONAL NORMAL RATIO (test code=INR) 1.45 Recommended INR range (warfarin therapy): 2.0 - 3.0INR (International Normalized Ratio) should beused when interpreting oral anticoaglulant therapy. For atrial fibrillation and treatment orprevention of deep vein thrombosis. Patients with Palmaz-Peggy stent *: 2.0 - 3.0 Patients with mechanical heart valve *: 2.5 - 3.5 Patients with flex-stent *: 3.0 - 4.0(*)=chief human resources officer's suggested range UNABLE TO OBTAIN TRIED TWICE/NOTIFIED JUVENAL MAJOR ANOTHER PHLEBWILL TRYIs patient on anticoagulants? No AnticoagulantsCOMPREHENSIVE METABOLIC [id number] 08:00:00* Test Item Value Reference Range Comments SODIUM (test code=NA) 139 MMOL/L 133-145 POTASSIUM (test code=K) 3.6 MMOL/L 3.6-5.2 CHLORIDE (test code=CL) 105 MMOL/L 100-108 CARBON DIOXIDE (test code=CO2) 24 MMOL/L 22-32 GLUCOSE (test code=GLU) 119 MG/DL 65-99 Results of this assay method may be falsely depressed orelevated if patient is taking sulfasalazine. BLOOD UREA NITROGEN (test code=BUN) 7 MG/DL 6-20 GLOMERULAR FILTRATION RATE (test code=GFR) 82 45-104 Reporting units: mL/min/1.73m\S\2 (Modified MDRD Formula) CREATININE (test code=CREAT) 0.71 MG/DL 0.60-1.00 TOTAL PROTEIN (test code=PROT) 6.7 G/DL 6.4-8.2 ALBUMIN (test code=ALB) 2.2 G/DL 3.4-5.0 GLOBULIN (test code=GLOB) 4.5 G/DL 1.5-3.8 ALBUMIN/GLOBULIN RATIO (test code=A/G) 0.5 1.1-2.2 CALCIUM (test code=CA) 8.7 MG/DL 8.7-10.5 BILIRUBIN TOTAL (test code=BILT) 0.3 MG/DL 0.0-1.0 SGOT/AST (test code=AST) 18 Units/L 15-37 Results of this assay method may be falsely depressed orelevated if patient is taking sulfasalazine. SGPT/ALT (test code=ALT) 24 Units/L 30-65 Results of this assay method may be falsely depressed orelevated if patient is taking sulfasalazine. ALKALINE PHOSPHATASE TOTAL (test code=ALKP) 131 Units/L 50-136 - XR CHEST 1 [id number] 08:00:00 Patient Name: SILVINO GAGNON Unit No: [id number] EXAMS: CPT CODE: [id number] XR CHEST 1 V [id number] Reason: pneumonia Single view chest shows dense consolidation or mass with central cavitation in the right perihilar region. There is increasing adjacent airspace disease compared to previous days exam. Mild vascular congestion demonstrated also increased from prior. Heart size remains upper limits of normal. Endotracheal tube and nasogastric tube remain. IMPRESSION: 1. Persistent right perihilar consolidation or mass with increasing adjacent airspace disease and vascular congestion at 0800 Reported and signed by: Bella Steiner MD CC: Kb Acosta MD Technologist: Jax TA Trscrpt Dt/ (0800)Alicia Orig Print D/T: S: 11/04/2018 (0803) [facility] NAME: SILVINO GAGNON [address] PHYS: Kb Barkley MD [facility] [place] [address] : 1950 AGE: 68 SEX: F LOC: LeonieiVrgieDALERichard 7 PHONE #: [phone] EXAM DATE: 11/04/2018 STATUS: ADM IN FAX #: RAD NO: DC Dt: PAGE 1 Signed Report COMPREHENSIVE METABOLIC [id number] 07:47:00* Test Item Value Reference Range Comments SODIUM (test code=NA) MMOL/L 133-145 POTASSIUM (test code=K) MMOL/L 3.6-5.2 CHLORIDE (test code=CL) 105 MMOL/L 100-108 CARBON DIOXIDE (test code=CO2) 24 MMOL/L 22-32 GLUCOSE (test code=GLU) 119 MG/DL 65-99 Results of this assay method may be falsely depressed orelevated if patient is taking sulfasalazine. BLOOD UREA NITROGEN (test code=BUN) 7 MG/DL 6-20 GLOMERULAR FILTRATION RATE (test code=GFR) 82 45-104 Reporting units: mL/min/1.73m\S\2 (Modified MDRD Formula) CREATININE (test code=CREAT) 0.71 MG/DL 0.60-1.00 TOTAL PROTEIN (test code=PROT) 6.7 G/DL 6.4-8.2 ALBUMIN (test code=ALB) 2.2 G/DL 3.4-5.0 GLOBULIN (test code=GLOB) 4.5 G/DL 1.5-3.8 ALBUMIN/GLOBULIN RATIO (test code=A/G) 0.5 1.1-2.2 CALCIUM (test code=CA) 8.7 MG/DL 8.7-10.5 BILIRUBIN TOTAL (test code=BILT) 0.3 MG/DL 0.0-1.0 SGOT/AST (test code=AST) 18 Units/L 15-37 Results of this assay method may be falsely depressed orelevated if patient is taking sulfasalazine. SGPT/ALT (test code=ALT) 24 Units/L 30-65 Results of this assay method may be falsely depressed orelevated if patient is taking sulfasalazine. ALKALINE PHOSPHATASE TOTAL (test code=ALKP) 131 Units/L 50-136 CBC W/AUTO [id number] 06:42:00* Test Item Value Reference Range Comments WHITE BLOOD CELL (test code=WBC) 28.11 x10 3/uL 4.80-10.80 RED BLOOD CELL (test code=RBC) 4.12 x10 6/uL 4.2-5.4 HEMOGLOBIN (test code=HGB) 11.1 G/DL 12.0-16.0 HEMATOCRIT (test code=HCT) 35.3 % 37-47 MEAN CELL VOLUME (test code=MCV) 85.7 FL 81-99 MEAN CELL HGB (test code=MCH) 26.9 PG 27-31 MEAN CELL HGB CONCENTRATION (test code=MCHC) 31.4 G/DL 33-37 RED CELL DISTRIBUTION WIDTH (test code=RDW) 15.7 % 11.5-14.5 PLATELET COUNT (test code=PLT) 375 x10 3/uL 150-450 MEAN PLATELET VOLUME (test code=MPV) 10.3 FL 7.4-10.4 MANUAL DIFF REQUIRED (test code=MDIFF) ADD MANUAL DIFF TECH REVIEW : WBC [id number] 06:42:00* Test Item Value Reference Range Comments TOTAL CELLS COUNTED (test code=TCC) 100 #CELLS SEGMENTED NEUTROPHILS (test code=SEG) 80 % 42-86 LYMPHOCYTE (test code=LYMPH) 9 % 24-44 MONOCYTE (test code=MON) 6 % 0-4 EOSINOPHIL (test code=EOS) 5 % 0-2.7 NUCLEATED RED BLOOD CELL (test code=NRBC) 1 BAND ABSOLUTE (test code=BAND#) 0.00 x10 3/uL 0.0-0.7 NEUTROPHIL ABSOLUTE (test code=NEUTR#) 22.48 x10 3/uL 6.0-26.0 LYMPH ABSOLUTE (test code=LYMPH#) 2.52 x10 3/uL 2.0-17.0 ATYPICAL LYMPH ABSOLUTE (test code=ALYMPH#) 0.00 x10 3/uL 0.0-0.0 MONOCYTE ABSOLUTE (test code=MON#) 1.68 x10 3/uL 0.4-3.1 BASOPHIL ABSOLUTE (test code=BASO#) 0.00 x10 3/uL 0.0-0.2 EOSINOPHIL ABSOLUTE (test code=EOS#) 1.40 x10 3/uL 0.0-0.5 METAMYELO ABSOLUTE (test code=META#) 0.00 x10 3/uL 0.0-0.0 MYELOCYTE ABSOLUTE (test code=MYELO#) 0.00 x10 3/uL 0.0-0.0 PROMYELOCYTE ABSOLUTE (test code=PROM#) 0.00 x10 3/uL 0.0-0.0 BLASTS ABSOLUTE (test code=BLAST#) 0.00 x10 3/uL 0.0-0.0 OTHER CELLS ABSOLUTE (test code=OCT#) 0.00 x10 3/uL 0.0-0.0 PLATELET ESTIMATE (test code=PLTEST) Norm ADEQ : CBC W/AUTO [id number] 05:16:00* Test Item Value Reference Range Comments WHITE BLOOD CELL (test code=WBC) 28.11 x10 3/uL 4.80-10.80 RED BLOOD CELL (test code=RBC) 4.12 x10 6/uL 4.2-5.4 HEMOGLOBIN (test code=HGB) 11.1 G/DL 12.0-16.0 HEMATOCRIT (test code=HCT) 35.3 % 37-47 MEAN CELL VOLUME (test code=MCV) 85.7 FL 81-99 MEAN CELL HGB (test code=MCH) 26.9 PG 27-31 MEAN CELL HGB CONCENTRATION (test code=MCHC) 31.4 G/DL 33-37 RED CELL DISTRIBUTION WIDTH (test code=RDW) 15.7 % 11.5-14.5 PLATELET COUNT (test code=PLT) 375 x10 3/uL 150-450 MEAN PLATELET VOLUME (test code=MPV) 10.3 FL 7.4-10.4 NEUTROPHIL % (test code=NT%) % 42-86 IMMATURE GRANULOCYTE % (test code=IG%) % 0.0-2.0 LYMPHOCYTE % (test code=LY%) % 24-44 MONOCYTE % (test code=MO%) % 0.0-4.0 EOSINOPHIL % (test code=EO%) % 0.0-2.7 BASOPHIL % (test code=BA%) % 0.0-0.5 NUCLEATED RBC % (test code=NRBC%) % 0.0-0.0 NEUTROPHIL # (test code=NT#) x10 3/uL 1.8-7.7 IMMATURE GRANULOCYTE # (test code=IG#) x10 3/uL 0.00-0.03 LYMPHOCYTE # (test code=LY#) x10 3/uL 1.0-4.8 MONOCYTE # (test code=MO#) x10 3/uL 0.0-0.8 EOSINOPHIL # (test code=EO#) x10 3/uL 0.0-0.5 BASOPHIL # (test code=BA#) x10 3/uL 0.0-0.2 NUCLEATED RBC # (test code=NRBC#) X10 3/uL 0.0-0.2 MANUAL DIFF REQUIRED (test code=MDIFF) ADD MANUAL DIFF TECH REVIEW : WBC [id number] 05:16:00* Test Item Value Reference Range Comments RBC MORPHOLOGY COMMENT (test code=RBCM) PLATELET ESTIMATE (test code=PLTEST) ADEQ : CBC W/AUTO [id number] 05:16:00* Test Item Value Reference Range Comments WHITE BLOOD CELL (test code=WBC) 28.11 x10 3/uL 4.80-10.80 RED BLOOD CELL (test code=RBC) 4.12 x10 6/uL 4.2-5.4 HEMOGLOBIN (test code=HGB) 11.1 G/DL 12.0-16.0 HEMATOCRIT (test code=HCT) 35.3 % 37-47 MEAN CELL VOLUME (test code=MCV) 85.7 FL 81-99 MEAN CELL HGB (test code=MCH) 26.9 PG 27-31 MEAN CELL HGB CONCENTRATION (test code=MCHC) 31.4 G/DL 33-37 RED CELL DISTRIBUTION WIDTH (test code=RDW) 15.7 % 11.5-14.5 PLATELET COUNT (test code=PLT) 375 x10 3/uL 150-450 MEAN PLATELET VOLUME (test code=MPV) 10.3 FL 7.4-10.4 NEUTROPHIL % (test code=NT%) % 42-86 IMMATURE GRANULOCYTE % (test code=IG%) % 0.0-2.0 LYMPHOCYTE % (test code=LY%) % 24-44 MONOCYTE % (test code=MO%) % 0.0-4.0 EOSINOPHIL % (test code=EO%) % 0.0-2.7 BASOPHIL % (test code=BA%) % 0.0-0.5 NUCLEATED RBC % (test code=NRBC%) % 0.0-0.0 NEUTROPHIL # (test code=NT#) x10 3/uL 1.8-7.7 IMMATURE GRANULOCYTE # (test code=IG#) x10 3/uL 0.00-0.03 LYMPHOCYTE # (test code=LY#) x10 3/uL 1.0-4.8 MONOCYTE # (test code=MO#) x10 3/uL 0.0-0.8 EOSINOPHIL # (test code=EO#) x10 3/uL 0.0-0.5 BASOPHIL # (test code=BA#) x10 3/uL 0.0-0.2 NUCLEATED RBC # (test code=NRBC#) X10 3/uL 0.0-0.2 MANUAL DIFF REQUIRED (test code=MDIFF) ADD MANUAL DIFF TECH REVIEW : WBC [id number] 05:16:00* Test Item Value Reference Range Comments RBC MORPHOLOGY COMMENT (test code=RBCM) PLATELET ESTIMATE (test code=PLTEST) ADEQ : ARTERIAL BLOOD [id number] 04:32:00* Test Item Value Reference Range Comments ARTERIAL BLOOD GAS PH (test code=PHA) 7.43 7.35-7.45 ARTERIAL BLOOD GAS PCO2 (test code=PCO2A) 37.4 mmHg 35.0-45.0 ARTERIAL BLOOD GAS PO2 (test code=PO2A) 77.1 mmHg 60.0-80.0 BICARBONATE TOTAL HCO3 (test code=HCO3) 24.3 mmol/L 20.0-26.0 BASE EXCESS (test code=KARL) -0.2 mmol/L -3.0-3.0 ABG O2 SATURATION (test code=SATA) 96.0 % 95-100 ABG TYPE (test code=TYPEA) Arterial FIO2 (test code=FIO2A) 40.0 % MODE (test code=MODE) AC ABG PATIENT RESP RATE (test code=RRPATA) 6.0 /MIN ABG VENT RESP RATE (test code=RRA) 14.0 /MIN ABG TIDAL VOLUME (test code=TVA) 500.0 ml ABG PEEP (test code=PEEPA) 5.0 cmH2O ABG TEMPERATURE (test code=TEMPA) 96.8 F CRISTY TEST (test code=ALN) Yes ABG SITE (test code=SITEA) RR TOTAL HGB (test code=THB) 14.3 G/DL 12.0-16.0 OXYHEMOGLOBIN (test code=OOHGBT) 95.2 % 92.0-98.0 CARBOXYHEMOGLOBIN (test code=HOHGBT) 0.3 % 0.5-1.5 METHEMOGLOBIN (test code=METHGB) 0.5 % 0.4-1.5 VANCOMYCIN [id number] 15:59:00* Test Item Value Reference Range Comments VANCOMYCIN TROUGH (test code=VANCT) 8.3 MCG/ML 10.0-20.0 The accepted therapeutic level for Methicillin-ResistantStaph Aureus (MRSA) is 15-20 mcg/mL. ARTERIAL BLOOD [id number] 14:14:00* Test Item Value Reference Range Comments ARTERIAL BLOOD GAS PH (test code=PHA) 7.41 7.35-7.45 ARTERIAL BLOOD GAS PCO2 (test code=PCO2A) 39.2 mmHg 35.0-45.0 ARTERIAL BLOOD GAS PO2 (test code=PO2A) 89.2 mmHg 60.0-80.0 BICARBONATE TOTAL HCO3 (test code=HCO3) 23.9 mmol/L 20.0-26.0 BASE EXCESS (test code=KARL) -0.3 mmol/L -3.0-3.0 ABG O2 SATURATION (test code=SATA) 96.1 % 95-100 ABG TYPE (test code=TYPEA) Arterial FIO2 (test code=FIO2A) 40.0 % MODE (test code=MODE) CPAP ABG PATIENT RESP RATE (test code=RRPATA) 25.0 /MIN ABG PAT TIDAL VOLUME (test code=VTPAT) 470 ml ABG PEEP (test code=PEEPA) 5.0 cmH2O ABG PRESSURE SUPPORT (test code=PSABG) 10 cmH2O ABG TEMPERATURE (test code=TEMPA) 100.2 F CRISTY TEST (test code=ALN) Yes ABG SITE (test code=SITEA) RR TOTAL HGB (test code=THB) 11.7 G/DL 12.0-16.0 OXYHEMOGLOBIN (test code=OOHGBT) 95.1 % 92.0-98.0 CARBOXYHEMOGLOBIN (test code=HOHGBT) 0.3 % 0.5-1.5 METHEMOGLOBIN (test code=METHGB) 0.7 % 0.4-1.5 - XR CHEST 1 [id number] 07:41:00 Patient Name: SILVINO GAGNON Unit No: [id number] EXAMS: CPT CODE: [id number] XR CHEST 1 V [id number] Reason: pneumonia Single view chest shows an approximately 6 cm cavitary lesion in the right perihilar region unchanged from previous days exam. There is underlying interstitial disease. No new air space abnormalities identified. Heart size remains within normal limits. Endotracheal tube and nasogastric tube remain. IMPRESSION: 1. Stable exam, right perihilar cavitary lesion similar to prior at 0741 Reported and signed by: Bella Steiner MD CC: Kb Acosta MD Technologist: Jax Mcclain RT Trscrpt Dt/ ([id number])[email or web address] Orig Print D/T: S: 11/03/2018 (0744) [facility] NAME: SILVINO GAGNON [address] PHYS: Kb Barkley MD [facility] [place] [address] : 1950 AGE: 68 SEX: F LOC: CARMEL[facility] 7 PHONE #: [phone] EXAM DATE: 11/03/2018 STATUS: ADM IN FAX #: RAD NO: DC Dt: PAGE 1 Signed Report COMPREHENSIVE METABOLIC [id number] 06:22:00* Test Item Value Reference Range Comments SODIUM (test code=NA) 143 MMOL/L 133-145 POTASSIUM (test code=K) 3.3 MMOL/L 3.6-5.2 CHLORIDE (test code=CL) 108 MMOL/L 100-108 CARBON DIOXIDE (test code=CO2) 24 MMOL/L 22-32 GLUCOSE (test code=GLU) 178 MG/DL 65-99 Results of this assay method may be falsely depressed orelevated if patient is taking sulfasalazine. BLOOD UREA NITROGEN (test code=BUN) 17 MG/DL 6-20 GLOMERULAR FILTRATION RATE (test code=GFR) 74 45-104 Reporting units: mL/min/1.73m\S\2 (Modified MDRD Formula) CREATININE (test code=CREAT) 0.78 MG/DL 0.60-1.00 TOTAL PROTEIN (test code=PROT) 6.0 G/DL 6.4-8.2 ALBUMIN (test code=ALB) 2.3 G/DL 3.4-5.0 GLOBULIN (test code=GLOB) 3.7 G/DL 1.5-3.8 ALBUMIN/GLOBULIN RATIO (test code=A/G) 0.6 1.1-2.2 CALCIUM (test code=CA) 8.1 MG/DL 8.7-10.5 BILIRUBIN TOTAL (test code=BILT) 0.2 MG/DL 0.0-1.0 SGOT/AST (test code=AST) 14 Units/L 15-37 Results of this assay method may be falsely depressed orelevated if patient is taking sulfasalazine. SGPT/ALT (test code=ALT) 31 Units/L 30-65 Results of this assay method may be falsely depressed orelevated if patient is taking sulfasalazine. ALKALINE PHOSPHATASE TOTAL (test code=ALKP) 89 Units/L 50-136 PROTHROMBIN [id number] 05:19:00* Test Item Value Reference Range Comments PROTHROMBIN TIME PATIENT (test code=PTP) 13.4 SECONDS 9.6-12.3 INTERNATIONAL NORMAL RATIO (test code=INR) 1.19 Recommended INR range (warfarin therapy): 2.0 - 3.0INR (International Normalized Ratio) should beused when interpreting oral anticoaglulant therapy. For atrial fibrillation and treatment orprevention of deep vein thrombosis. Patients with Palmaz-Peggy stent *: 2.0 - 3.0 Patients with mechanical heart valve *: 2.5 - 3.5 Patients with flex-stent *: 3.0 - 4.0(*)=chief human resources officer's suggested range Is patient on anticoagulants? No AnticoagulantsCBC W/AUTO [id number] 05:14:00* Test Item Value Reference Range Comments WHITE BLOOD CELL (test code=WBC) 18.58 x10 3/uL 4.80-10.80 RED BLOOD CELL (test code=RBC) 3.59 x10 6/uL 4.2-5.4 HEMOGLOBIN (test code=HGB) 9.8 G/DL 12.0-16.0 HEMATOCRIT (test code=HCT) 31.4 % 37-47 MEAN CELL VOLUME (test code=MCV) 87.5 FL 81-99 MEAN CELL HGB (test code=MCH) 27.3 PG 27-31 MEAN CELL HGB CONCENTRATION (test code=MCHC) 31.2 G/DL 33-37 RED CELL DISTRIBUTION WIDTH (test code=RDW) 15.6 % 11.5-14.5 PLATELET COUNT (test code=PLT) 431 x10 3/uL 150-450 MEAN PLATELET VOLUME (test code=MPV) 9.1 FL 7.4-10.4 NEUTROPHIL % (test code=NT%) 81.8 % 42-86 IMMATURE GRANULOCYTE % (test code=IG%) 0.7 % 0.0-2.0 LYMPHOCYTE % (test code=LY%) 11.5 % 24-44 MONOCYTE % (test code=MO%) 4.5 % 0.0-4.0 EOSINOPHIL % (test code=EO%) 1.3 % 0.0-2.7 BASOPHIL % (test code=BA%) 0.2 % 0.0-0.5 NUCLEATED RBC % (test code=NRBC%) 0.0 % 0.0-0.0 NEUTROPHIL # (test code=NT#) 15.21 x10 3/uL 1.8-7.7 IMMATURE GRANULOCYTE # (test code=IG#) 0.13 x10 3/uL 0.00-0.03 LYMPHOCYTE # (test code=LY#) 2.13 x10 3/uL 1.0-4.8 MONOCYTE # (test code=MO#) 0.83 x10 3/uL 0.0-0.8 EOSINOPHIL # (test code=EO#) 0.25 x10 3/uL 0.0-0.5 BASOPHIL # (test code=BA#) 0.03 x10 3/uL 0.0-0.2 NUCLEATED RBC # (test code=NRBC#) 0.0 X10 3/uL 0.0-0.2 : ARTERIAL BLOOD [id number] 17:25:00* Test Item Value Reference Range Comments ARTERIAL BLOOD GAS PH (test code=PHA) 7.40 7.35-7.45 ARTERIAL BLOOD GAS PCO2 (test code=PCO2A) 38.9 mmHg 35.0-45.0 ARTERIAL BLOOD GAS PO2 (test code=PO2A) 91.5 mmHg 60.0-80.0 BICARBONATE TOTAL HCO3 (test code=HCO3) 23.6 mmol/L 20.0-26.0 BASE EXCESS (test code=KARL) -1.0 mmol/L -3.0-3.0 ABG O2 SATURATION (test code=SATA) 96.6 % 95-100 ABG TYPE (test code=TYPEA) Arterial FIO2 (test code=FIO2A) 40.0 % ABG PATIENT RESP RATE (test code=RRPATA) 19.0 /MIN ABG PAT TIDAL VOLUME (test code=VTPAT) 503 ml ABG PRESSURE SUPPORT (test code=PSABG) 7 cmH2O ABG TEMPERATURE (test code=TEMPA) 98.6 F CRISTY TEST (test code=ALN) Yes ABG SITE (test code=SITEA) RR TOTAL HGB (test code=THB) 10.9 G/DL 12.0-16.0 OXYHEMOGLOBIN (test code=OOHGBT) 95.6 % 92.0-98.0 CARBOXYHEMOGLOBIN (test code=HOHGBT) 0.3 % 0.5-1.5 METHEMOGLOBIN (test code=METHGB) 0.7 % 0.4-1.5 COMPREHENSIVE METABOLIC [id number] 09:16:00* Test Item Value Reference Range Comments SODIUM (test code=NA) 142 MMOL/L 133-145 POTASSIUM (test code=K) 3.7 MMOL/L 3.6-5.2 CHLORIDE (test code=CL) 106 MMOL/L 100-108 CARBON DIOXIDE (test code=CO2) 28 MMOL/L 22-32 GLUCOSE (test code=GLU) 147 MG/DL 65-99 Results of this assay method may be falsely depressed orelevated if patient is taking sulfasalazine. BLOOD UREA NITROGEN (test code=BUN) 19 MG/DL 6-20 GLOMERULAR FILTRATION RATE (test code=GFR) 61 45-104 Reporting units: mL/min/1.73m\S\2 (Modified MDRD Formula) CREATININE (test code=CREAT) 0.92 MG/DL 0.60-1.00 TOTAL PROTEIN (test code=PROT) 6.3 G/DL 6.4-8.2 ALBUMIN (test code=ALB) 2.4 G/DL 3.4-5.0 GLOBULIN (test code=GLOB) 3.9 G/DL 1.5-3.8 ALBUMIN/GLOBULIN RATIO (test code=A/G) 0.6 1.1-2.2 CALCIUM (test code=CA) 8.3 MG/DL 8.7-10.5 BILIRUBIN TOTAL (test code=BILT) 0.2 MG/DL 0.0-1.0 SGOT/AST (test code=AST) 11 Units/L 15-37 Results of this assay method may be falsely depressed orelevated if patient is taking sulfasalazine. SGPT/ALT (test code=ALT) 23 Units/L 30-65 Results of this assay method may be falsely depressed orelevated if patient is taking sulfasalazine. ALKALINE PHOSPHATASE TOTAL (test code=ALKP) 92 Units/L 50-136 THIS IS A RECOLLECT. PREVIOUS HEMOLYZEDRENAL FUNCTION [id number] 09:16:00* Test Item Value Reference Range Comments PHOSPHOROUS (test code=PHOS) 3.0 MG/DL 2.5-4.9 THIS IS A RECOLLECT. PREVIOUS [id number] 09:16:00* Test Item Value Reference Range Comments MAGNESIUM (test code=MAG) 2.4 MG/DL 1.8-2.4 THIS IS A RECOLLECT. PREVIOUS HEMOLYZEDNT PRO-BRAIN NATRIURETIC PEPTI 2018-11-02 09:16:00* Test Item Value Reference Range Comments NT PRO-BRAIN NATRIURETIC PEPTI (test code=PROBNP) 64 PG/ML 0-125 Results of this assay method may be falsely depressed orelevated if patient is taking high doses of Biotin. THIS IS A RECOLLECT. PREVIOUS HEMOLYZED- XR CHEST 1 [id number] 09:04:00 Patient Name: SILVINO GAGNON Unit No: [id number] EXAMS: CPT CODE: [id number] XR CHEST 1 V 72938 Reason: pneumonia History: Cavitary lesion. Pneumonia. TECHNIQUE: Chest x-ray single portable view 0830 hours. COMPARISON: November 01, 2018. FINDINGS: Cavitary lesion right mid lower lung rivas. Endotracheal tube similar position ending above hernan . Nasogastric tube. Overlying artifacts and monitor leads. IMPRESSION: 1. Stable portable chest x-ray with mass like lesion rig ht hilum. Support tubing apparatus. No visualized pneumothorax. at 0904 Reported and signed by: Otilio Tripathi MD CC: Kb Acosta MD Technol ogist: Emily BEARD RT; Ger Parikh Students Trscrpt Dt/T: (0904)[email or web address] Orig Print D/T: S: 11/02/2018 (0907) [facility] NAME: SILVINO BOTELLO [address] PHYS: Kb Barkley MD [facility], [place] [address] : 1950 AG E: 68 SEX: F C: DAVEY 1 PHONE #: [phone] EXAM DATE: 11/02/2018 STATUS : ADM IN FAX #: RAD NO: DC Dt: PAGE 1 Signed Report CBC W/AUTO [id number] 08:35:00* Test Item Value Reference Range Comments WHITE BLOOD CELL (test code=WBC) 24.88 x10 3/uL 4.80-10.80 RED BLOOD CELL (test code=RBC) 4.00 x10 6/uL 4.2-5.4 HEMOGLOBIN (test code=HGB) 10.7 G/DL 12.0-16.0 HEMATOCRIT (test code=HCT) 34.2 % 37-47 MEAN CELL VOLUME (test code=MCV) 85.5 FL 81-99 MEAN CELL HGB (test code=MCH) 26.8 PG 27-31 MEAN CELL HGB CONCENTRATION (test code=MCHC) 31.3 G/DL 33-37 RED CELL DISTRIBUTION WIDTH (test code=RDW) 15.5 % 11.5-14.5 PLATELET COUNT (test code=PLT) 512 x10 3/uL 150-450 MEAN PLATELET VOLUME (test code=MPV) 9.2 FL 7.4-10.4 NEUTROPHIL % (test code=NT%) 83.4 % 42-86 IMMATURE GRANULOCYTE % (test code=IG%) 1.0 % 0.0-2.0 LYMPHOCYTE % (test code=LY%) 10.5 % 24-44 MONOCYTE % (test code=MO%) 4.7 % 0.0-4.0 EOSINOPHIL % (test code=EO%) 0.2 % 0.0-2.7 BASOPHIL % (test code=BA%) 0.2 % 0.0-0.5 NUCLEATED RBC % (test code=NRBC%) 0.0 % 0.0-0.0 NEUTROPHIL # (test code=NT#) 20.74 x10 3/uL 1.8-7.7 IMMATURE GRANULOCYTE # (test code=IG#) 0.26 x10 3/uL 0.00-0.03 LYMPHOCYTE # (test code=LY#) 2.62 x10 3/uL 1.0-4.8 MONOCYTE # (test code=MO#) 1.17 x10 3/uL 0.0-0.8 EOSINOPHIL # (test code=EO#) 0.05 x10 3/uL 0.0-0.5 BASOPHIL # (test code=BA#) 0.04 x10 3/uL 0.0-0.2 NUCLEATED RBC # (test code=NRBC#) 0.0 X10 3/uL 0.0-0.2 MANUAL DIFF REQUIRED (test code=MDIFF) AUTODIFF VERIFIED TECH REVIEW Auto Differential verified by tech review of smear. : PROTHROMBIN [id number] 06:59:00* Test Item Value Reference Range Comments PROTHROMBIN TIME PATIENT (test code=PTP) 13.5 SECONDS 9.6-12.3 INTERNATIONAL NORMAL RATIO (test code=INR) 1.19 Recommended INR range (warfarin therapy): 2.0 - 3.0INR (International Normalized Ratio) should beused when interpreting oral anticoaglulant therapy. For atrial fibrillation and treatment orprevention of deep vein thrombosis. Patients with Palmaz-Peggy stent *: 2.0 - 3.0 Patients with mechanical heart valve *: 2.5 - 3.5 Patients with flex-stent *: 3.0 - 4.0(*)=chief human resources officer's suggested range Is patient on anticoagulants? No AnticoagulantsCBC W/AUTO [id number] 06:42:00* Test Item Value Reference Range Comments WHITE BLOOD CELL (test code=WBC) 24.88 x10 3/uL 4.80-10.80 RED BLOOD CELL (test code=RBC) 4.00 x10 6/uL 4.2-5.4 HEMOGLOBIN (test code=HGB) 10.7 G/DL 12.0-16.0 HEMATOCRIT (test code=HCT) 34.2 % 37-47 MEAN CELL VOLUME (test code=MCV) 85.5 FL 81-99 MEAN CELL HGB (test code=MCH) 26.8 PG 27-31 MEAN CELL HGB CONCENTRATION (test code=MCHC) 31.3 G/DL 33-37 RED CELL DISTRIBUTION WIDTH (test code=RDW) 15.5 % 11.5-14.5 PLATELET COUNT (test code=PLT) 512 x10 3/uL 150-450 MEAN PLATELET VOLUME (test code=MPV) 9.2 FL 7.4-10.4 NEUTROPHIL % (test code=NT%) % 42-86 IMMATURE GRANULOCYTE % (test code=IG%) % 0.0-2.0 LYMPHOCYTE % (test code=LY%) % 24-44 MONOCYTE % (test code=MO%) % 0.0-4.0 EOSINOPHIL % (test code=EO%) % 0.0-2.7 BASOPHIL % (test code=BA%) % 0.0-0.5 NUCLEATED RBC % (test code=NRBC%) % 0.0-0.0 NEUTROPHIL # (test code=NT#) x10 3/uL 1.8-7.7 IMMATURE GRANULOCYTE # (test code=IG#) x10 3/uL 0.00-0.03 LYMPHOCYTE # (test code=LY#) x10 3/uL 1.0-4.8 MONOCYTE # (test code=MO#) x10 3/uL 0.0-0.8 EOSINOPHIL # (test code=EO#) x10 3/uL 0.0-0.5 BASOPHIL # (test code=BA#) x10 3/uL 0.0-0.2 NUCLEATED RBC # (test code=NRBC#) X10 3/uL 0.0-0.2 : ARTERIAL BLOOD [id number] 04:23:00* Test Item Value Reference Range Comments ARTERIAL BLOOD GAS PH (test code=PHA) 7.42 7.35-7.45 ARTERIAL BLOOD GAS PCO2 (test code=PCO2A) 40.3 mmHg 35.0-45.0 ARTERIAL BLOOD GAS PO2 (test code=PO2A) 160.6 mmHg 60.0-80.0 BICARBONATE TOTAL HCO3 (test code=HCO3) 25.2 mmol/L 20.0-26.0 BASE EXCESS (test code=KARL) 0.7 mmol/L -3.0-3.0 ABG O2 SATURATION (test code=SATA) 99.0 % 95-100 ABG TYPE (test code=TYPEA) Arterial FIO2 (test code=FIO2A) 40.0 % MODE (test code=MODE) AC ABG PATIENT RESP RATE (test code=RRPATA) 14.0 /MIN ABG VENT RESP RATE (test code=RRA) 14.0 /MIN ABG TIDAL VOLUME (test code=TVA) 500.0 ml ABG PEEP (test code=PEEPA) 5.0 cmH2O ABG TEMPERATURE (test code=TEMPA) 99.2 F CRISTY TEST (test code=ALN) Yes ABG SITE (test code=SITEA) LR TOTAL HGB (test code=THB) 7.8 G/DL 12.0-16.0 OXYHEMOGLOBIN (test code=OOHGBT) 97.9 % 92.0-98.0 CARBOXYHEMOGLOBIN (test code=HOHGBT) 0.3 % 0.5-1.5 METHEMOGLOBIN (test code=METHGB) 0.8 % 0.4-1.5 PROCALCITONIN (PCT)2018-11-02 03:42:00* Test Item Value Reference Range Comments PROCALCITONIN (PCT) (test code=PROCAL) 1.59 ng/mL 0.00-0.50 GLYCOSYLATED HEMOGLOBIN (HA1C)2018-11-01 19:31:00* Test Item Value Reference Range Comments GLYCOSYLATED HEMOGLOBIN (HA1C) (test code=GLYHGB) 6.2 % TOT HB 4.5-6.2 : If not already done- CTA [id number] 18:16:00 Patient Name: SILVINO GAGNON Unit No: [id number] EXAMS: CPT CODE: [id number] CTA CHEST 47047 Reason: Sudden onset SOB/decompensation; History: Sudden onset of shortness of breath/decompensation. Right perihilar mass versus pneumonia. COMPARISON: Portable chest from 11/01/2018. DATE: 11/01/2018 at 1747 hours. CTA OF THE CHEST WITH IV CONTRAST: Axial images are obtained with intravenous contrast using 70 mL of Isovue 370. Serum creatinine 0.8. Sagittal and coronal MPR images and coronal MIP images as well as 3-D STIR and images are provided. FINDINGS: Endotracheal tube is positioned with its tip just above the hernan. Nasogastric tube has normal course along the esophagus into the stomach. The lungs are notable for cavitating mass lesion at the lower anterior segment right upper lung showing greatest diameter 5 cm with some peripheral atelectasis or tumor extending to the pleural surface. There is suspected adenopathy along the right hilum extending to the right subcarinal space and right paratracheal stripe to the level of the aortic arch. Primary lung malignancy is considered most likely. This patient would typically be very sick with a lung abscess if this were present. Pulmonary arteries are free of thrombi. No dissection within the thoracic aorta is demonstrated. Thoracic soft tissues are notable for mildly generous body habitus Visualized portions of the intra-abdominal organs are unremarkable. Small sliding hiatal hernia is seen in the poste rior mediastinum at the lower thorax. IMPRESSION: 1. Cavitating lesion at the anterior segment right upper lobe abutting the minor fissure measuring 5 cm in diameter or greater and extending to the anterior right pleural surface. Several suspected hilar or mediast inal lymph nodes are noted which could represent stage IIIa or stage III . Prominent lung cancer. Consider additional staging with PET/CT PET/C T in a nonemergent matter after tissue diagnosis with CT-guided biopsy. Bronchoscopy can be utilized if desired based on its position within the thorax. 2. Low-lying endotracheal tube. Nasogastric tube has satisfa ctory course within the thorax and upper abdomen. 3. Sliding hi atal hernia. 4. Low-grade thoracic spine arthritic changes. Important abnormal findings! Electronical ly Signed by Christo Jurado MD on 11/01/2018 at 181 6 Reported and signed by: Christo Jurado MD [facility] NAME: SILVINO GAGNON [address] [facility] PHYS: DALE. [place] [address] : 1950 AGE: 68 SEX: F LOC: ROSARIO PHONE #: [phone] EXAM DATE: 11/01/2018 STATUS: REG ER FAX #: RAD NO: DC Dt: PAGE 1 Signed Report (CONTINUED) Patient Name: SILVINO ROSE Unit No: [id number] EXAMS: CPT CODE: [id number] CTA CHEST 99699 <Continued> Reason: Sudden onset SOB/decompensation; CC: Kim Henry MD Technologist: Tereza Power CT Trscrpt Dt/ (1815)Mc.ELG Orig Print D/T: S: 11/01/2018 (1818) CTDI: DLP: [facility] NAME: SILVINO GAGNON [address] PHYS: [email or web address] - TooKim MD [facility], [place] [address] : 1950 AGE: 68 SEX: F LOC: ROSARIO PHONE #: [phone] EXAM DATE: 11/01/2018 STATUS: REG ER FAX #: RAD NO: DC Dt: PAGE 2 Signed Report COMPREHENSIVE METABOLIC [id number] 18:04:00* Test Item Value Reference Range Comments SODIUM (test code=NA) 141 MMOL/L 133-145 POTASSIUM (test code=K) 3.7 MMOL/L 3.6-5.2 CHLORIDE (test code=CL) 105 MMOL/L 100-108 CARBON DIOXIDE (test code=CO2) 28 MMOL/L 22-32 GLUCOSE (test code=GLU) 198 MG/DL 65-99 Results of this assay method may be falsely depressed orelevated if patient is taking sulfasalazine. BLOOD UREA NITROGEN (test code=BUN) 20 MG/DL 6-20 GLOMERULAR FILTRATION RATE (test code=GFR) 56 45-104 Reporting units: mL/min/1.73m\S\2 (Modified MDRD Formula) CREATININE (test code=CREAT) 0.99 MG/DL 0.60-1.00 TOTAL PROTEIN (test code=PROT) 6.2 G/DL 6.4-8.2 ALBUMIN (test code=ALB) 2.5 G/DL 3.4-5.0 GLOBULIN (test code=GLOB) 3.7 G/DL 1.5-3.8 ALBUMIN/GLOBULIN RATIO (test code=A/G) 0.7 1.1-2.2 CALCIUM (test code=CA) 7.6 MG/DL 8.7-10.5 BILIRUBIN TOTAL (test code=BILT) 0.2 MG/DL 0.0-1.0 SGOT/AST (test code=AST) 16 Units/L 15-37 Results of this assay method may be falsely depressed orelevated if patient is taking sulfasalazine. SGPT/ALT (test code=ALT) 26 Units/L 30-65 Results of this assay method may be falsely depressed orelevated if patient is taking sulfasalazine. ALKALINE PHOSPHATASE TOTAL (test code=ALKP) 98 Units/L 50-136 [id number] 18:04:00* Test Item Value Reference Range Comments MAGNESIUM (test code=MAG) 2.2 MG/DL 1.8-2.4 CBC W/AUTO [id number] 17:58:00* Test Item Value Reference Range Comments WHITE BLOOD CELL (test code=WBC) 32.52 x10 3/uL 4.80-10.80 Results called to and read back by ED BOLTON;9134, 11/01/18, D.LAB.LC. RED BLOOD CELL (test code=RBC) 4.00 x10 6/uL 4.2-5.4 HEMOGLOBIN (test code=HGB) 11.0 G/DL 12.0-16.0 HEMATOCRIT (test code=HCT) 33.4 % 37-47 MEAN CELL VOLUME (test code=MCV) 83.5 FL 81-99 MEAN CELL HGB (test code=MCH) 27.5 PG 27-31 MEAN CELL HGB CONCENTRATION (test code=MCHC) 32.9 G/DL 33-37 RED CELL DISTRIBUTION WIDTH (test code=RDW) 15.0 % 11.5-14.5 PLATELET COUNT (test code=PLT) 468 x10 3/uL 150-450 MEAN PLATELET VOLUME (test code=MPV) 8.7 FL 7.4-10.4 NEUTROPHIL % (test code=NT%) 91.0 % 42-86 IMMATURE GRANULOCYTE % (test code=IG%) 1.2 % 0.0-2.0 LYMPHOCYTE % (test code=LY%) 3.1 % 24-44 MONOCYTE % (test code=MO%) 4.5 % 0.0-4.0 EOSINOPHIL % (test code=EO%) 0.0 % 0.0-2.7 BASOPHIL % (test code=BA%) 0.2 % 0.0-0.5 NUCLEATED RBC % (test code=NRBC%) 0.0 % 0.0-0.0 NEUTROPHIL # (test code=NT#) 29.63 x10 3/uL 1.8-7.7 IMMATURE GRANULOCYTE # (test code=IG#) 0.38 x10 3/uL 0.00-0.03 LYMPHOCYTE # (test code=LY#) 1.00 x10 3/uL 1.0-4.8 MONOCYTE # (test code=MO#) 1.46 x10 3/uL 0.0-0.8 EOSINOPHIL # (test code=EO#) 0.00 x10 3/uL 0.0-0.5 BASOPHIL # (test code=BA#) 0.05 x10 3/uL 0.0-0.2 NUCLEATED RBC # (test code=NRBC#) 0.0 X10 3/uL 0.0-0.2 MANUAL DIFF REQUIRED (test code=MDIFF) AUTODIFF VERIFIED TECH REVIEW Auto Differential verified by tech review of smear. CBC W/AUTO [id number] 17:44:00* Test Item Value Reference Range Comments WHITE BLOOD CELL (test code=WBC) 32.52 x10 3/uL 4.80-10.80 Results called to and read back by ED BOLTON;2959, 11/01/18, D.LAB.LC. RED BLOOD CELL (test code=RBC) 4.00 x10 6/uL 4.2-5.4 HEMOGLOBIN (test code=HGB) 11.0 G/DL 12.0-16.0 HEMATOCRIT (test code=HCT) 33.4 % 37-47 MEAN CELL VOLUME (test code=MCV) 83.5 FL 81-99 MEAN CELL HGB (test code=MCH) 27.5 PG 27-31 MEAN CELL HGB CONCENTRATION (test code=MCHC) 32.9 G/DL 33-37 RED CELL DISTRIBUTION WIDTH (test code=RDW) 15.0 % 11.5-14.5 PLATELET COUNT (test code=PLT) 468 x10 3/uL 150-450 MEAN PLATELET VOLUME (test code=MPV) 8.7 FL 7.4-10.4 NEUTROPHIL % (test code=NT%) % 42-86 IMMATURE GRANULOCYTE % (test code=IG%) % 0.0-2.0 LYMPHOCYTE % (test code=LY%) % 24-44 MONOCYTE % (test code=MO%) % 0.0-4.0 EOSINOPHIL % (test code=EO%) % 0.0-2.7 BASOPHIL % (test code=BA%) % 0.0-0.5 NUCLEATED RBC % (test code=NRBC%) % 0.0-0.0 NEUTROPHIL # (test code=NT#) x10 3/uL 1.8-7.7 IMMATURE GRANULOCYTE # (test code=IG#) x10 3/uL 0.00-0.03 LYMPHOCYTE # (test code=LY#) x10 3/uL 1.0-4.8 MONOCYTE # (test code=MO#) x10 3/uL 0.0-0.8 EOSINOPHIL # (test code=EO#) x10 3/uL 0.0-0.5 BASOPHIL # (test code=BA#) x10 3/uL 0.0-0.2 NUCLEATED RBC # (test code=NRBC#) X10 3/uL 0.0-0.2 ARTERIAL BLOOD [id number] 15:44:00* Test Item Value Reference Range Comments ARTERIAL BLOOD GAS PH (test code=PHA) 7.40 7.35-7.45 ARTERIAL BLOOD GAS PCO2 (test code=PCO2A) 37.6 mmHg 35.0-45.0 ARTERIAL BLOOD GAS PO2 (test code=PO2A) 152.0 mmHg 60.0-80.0 BICARBONATE TOTAL HCO3 (test code=HCO3) 22.8 mmol/L 20.0-26.0 BASE EXCESS (test code=KARL) -1.6 mmol/L -3.0-3.0 ABG O2 SATURATION (test code=SATA) 98.8 % 95-100 ABG TYPE (test code=TYPEA) Arterial FIO2 (test code=FIO2A) 50.0 % MODE (test code=MODE) AC 14 ABG PATIENT RESP RATE (test code=RRPATA) 1.0 /MIN ABG VENT RESP RATE (test code=RRA) 14.0 /MIN ABG TIDAL VOLUME (test code=TVA) 500.0 ml ABG PAT TIDAL VOLUME (test code=VTPAT) 524 ml ABG PEEP (test code=PEEPA) 5.0 cmH2O ABG TEMPERATURE (test code=TEMPA) 98.6 F CRISTY TEST (test code=ALN) Yes ABG SITE (test code=SITEA) RR TOTAL HGB (test code=THB) 11.9 G/DL 12.0-16.0 OXYHEMOGLOBIN (test code=OOHGBT) 97.9 % 92.0-98.0 CARBOXYHEMOGLOBIN (test code=HOHGBT) 0.3 % 0.5-1.5 METHEMOGLOBIN (test code=METHGB) 0.6 % 0.4-1.5 - XR ABDOMEN 1 [id number] 15:41:00 Patient Name: SILVINO GAGNON Unit No: [id number] EXAMS: CPT CODE: [id number] XR ABDOMEN 1 V 28803 Reason: OGT - XR ABDOMEN 1 V 11/01/2018 3:03 PM Impression: Indication: SOB OGT placement FINDINGS: The NG tube is in the stomach with the tip at about the body level and the sidehole at about cardia level. Cholecystectomy. Nonobstructive gas pattern. at 1543 Reported and signed by: Reynaldo Hayward MD CC: Kim Henry MD Technologist: Trisha TA Trscrpt Dt/ (154)t.PKE Orig Print D/T: S: 11/01/2018 (9715) [facility] NAME: SILVINO GAGNON [address] [facility] PHYS: DALE. [place] [address] : 1950 AGE: 68 SEX: F LOC: ROSARIO PHONE #: [phone] EXAM DATE: 11/01/2018 STATUS: REG ER FAX #: RAD NO: DC Dt: PAGE 1 Signed Report - XR CHEST 1 [id number] 15:37:00 Patient Name: SILVINO GAGNON Unit No: [id number] EXAMS: CPT CODE: [id number] XR CHEST 1 V 16195 Reason: Intubated - XR CHEST 1 V 11/01/2018 2:52 PM Indication: SOB intubated COMPARISON: None at all FINDINGS: There is a 4 cm right lower lobe masslike density. Allowing for some rotation of the right, I also believe the right hilum and paratracheal shadows are abnormal suggesting adenopathy. Further evaluation is needed. There is endotracheal tube 1 cm above the hernan. NGT is at least into the stomach although the tip goes off the lower edge film. Heart size normal left lung clear. Impression: Right lower lobe masslike density with right hilar apparent adenopathy. at 1537 Reported and signed by: Reynaldo Hayward MD CC: Kim Henry MD Technologist: Trisha Galvan RT Trscrpt Dt/ (0403)t.PKE Orig Print D/T: S: 11/01/2018 (6851) [facility] NAME: SILVINO GAGNON [address] [facility] PHYS: DESTINY CH. Kim Henry MD [facility] [place] [address] : [birth year] AGE: 68 SEX: F 7 LOC: ROSARIO PHONE #: [phone] EXAM DATE: 11/01/2018 [facility]: [facility] ER FAX #: RAD NO: DC Dt: PAGE 1 Signed Report
--- NOTE | 2019-02-21 07:10 | NUR ---
SPIRITUAL CARE - Pre-Surgery Assessment: Pt in bed. Pt's at bedside. Pt reported supportive attention from family and friends. Intervention: I provided pastoral presence, hospitality, sympathetic listening, and prayer. I acquainted pt with availability of human resources hr representative while hospitalized. Outcome: Pt expressed appreciation for visit. No need for follow up indicated at this time. [facility] Department O: [phone] Pager: [phone] ([phone] number calling from)
[2019-02-21] MEDS ORDERED: BUPIVACAINE 0.25%/EPI 30ML SDV INJ ONE (07:21)
[2019-02-21] MEDS ORDERED: HYDROMORPHONE 2MG/ML 2 MG/ML ML ONE (10:57)
[2019-02-21] MEDS ORDERED: ACETAMINOPHEN 1000 MG/100 ML IV PRN (11:00)
[2019-02-21] MEDS ORDERED: METOCLOPRAMIDE HCL 10 MG/2ML VIAL ONE (11:18)
[2019-02-21] MEDS: PANTOPRAZOLE 40 MG 10ML VIAL IV SCH (12:35)
[2019-02-21] MEDS: SODIUM CHLORIDE 0.9% 1000ML 1,000 ML IV SCH (14:30)
[2019-02-21] MEDS: HYDROMORPHONE 2MG/ML 2 MG/ML ML IV PRN ×3 (14:35→22:42)
--- NOTE | 2019-02-21 15:43 | Operative Report ---
DATE OF PROCEDURE: 02/21/2019 SURGEON: Brayan Jon MD PREOPERATIVE DIAGNOSIS: Hiatal hernia with gastroesophageal reflux disease and Juarez's esophagus. POSTOPERATIVE DIAGNOSIS: Hiatal hernia with gastroesophageal reflux disease and Juarez's esophagus. OPERATION PERFORMED: Laparoscopic repair of hiatal hernia with Genet fundoplication. DEAN OF GIRLS: Dr. Eliecer Jon and ERWIN Serrato. ANESTHESIA: General. COMPLICATIONS: None. ESTIMATED BLOOD LOSS: Minimal. PROCEDURE IN DETAIL: With the patient lying in bed in the supine position under good general endotracheal anesthesia, the abdomen was prepped with Betadine solution and draped in the usual manner. A Veress needle was introduced into the left mid abdomen and pneumoperitoneum was established without any difficulty. An 11 mm trocar was placed in the left mid abdomen and a 10 mm video laparoscope was placed into the intraabdominal cavity. Video laparoscopy at this point revealed that the patient had a curtain of adhesions divided in the right and left side of the abdomen from her previous surgery with the omentum stuck to the anterior abdominal wall. Another 11 and a couple of 5 mm trocars were then placed in the left upper abdomen and using the Harmonic scalpel, adhesions were taken down so that we could get free access to the abdominal cavity. Once this was done, another 5 mm trocar was placed in the right upper quadrant. The left lobe of the liver was then retracted and examination revealed the fact that the patient had a moderate-sized hiatal hernia with somewhat patulous esophagus with a large amount of fat in the hiatus. The rest of the abdominal exploration was otherwise within normal limits. Using the Harmonic scalpel, the fat pad was then from the right crura and the right crura was clearly identified and then dissected upwards. The esophagus was then identified anteriorly and freed up on the right side anteriorly and also the retroesophageal area. After this was done, the short gastrics were then taken down from the fundus and the left crura was then also dissected free of the esophagus with the Harmonic scalpel. Once this was done, we had good access circumferentially around the esophagus, some excess of the fat pad was resected, the bougie and an NG tube were then properly placed in the stomach and the crura was then approximated posterior to the esophagus using interrupted sutures of 0 Ethibond closing the defect without making it too tight. After this was done, the fundus of the stomach was then brought in a retroesophageal fashion and sutured in place using interrupted 0 Ethibond sutures bringing one side of the fundus to the lower esophagus to the other side of the fundus creating a 360 degree floppy Genet fundoplication. The bougie was then removed, the NG tube was left in place, all area was thoroughly irrigated, perfect hemostasis was ascertained and the pneumoperitoneum was then evacuated and all the trocars were removed under direct vision. The midline fascia of the 11 mm trocar was then closed with [id number] of 0 Vicryl. All layers were infiltrated on the way out with solution of 0.25% Marcaine. Subcutaneous tissue was approximated with 3-0 Vicryl and the skin was closed subcuticular 5-0 Vicryl. Benzoin, Steri-Strips, and Band-Aids were applied. The sponge, lap, and needle count was correct. The patient tolerated the procedure well and returned to the recovery room in stable condition. MD SWAPNA Jefferson/MEGAN /[id number]
[2019-02-21 17:41] VITALS: BP 124/59
[2019-02-21 17:42] VITALS: BP 124/59
[2019-02-21] MEDS ORDERED: FENTANYL CITRATE/PF 100MCG/2 ML INJ ONE (17:57)
[2019-02-21] MEDS ORDERED: MIDAZOLAM HCL 2 MG/2 ML VIAL ONE (17:57)
[2019-02-21 18:13] VITALS: BP 136/65
[2019-02-21] MEDS ORDERED: ROCURONIUM BROMIDE 10 MG/ML 5ML VIAL ONE (18:32)
[2019-02-21] MEDS ORDERED: LIDOCAINE HCL 2% LOCAL INJ 5 ML SDV VIAL INJ ONE (18:32)
[2019-02-21] MEDS ORDERED: DEXAMETHASONE SOD PHOS INJ 4 MG/ML VIAL ONE (18:32)
[2019-02-21] MEDS ORDERED: SEVOFLURANE INHAL SOLN 250 ML PEN BTL ONE (18:32)
[2019-02-21] MEDS ORDERED: GLYCOPYRROLATE INJ 1MG/ 5 ML SYR ONE (18:32)
[2019-02-21] MEDS ORDERED: PHENYLEPHRINE HCL 1% 10 MG/ML VIAL ONE (18:32)
[2019-02-21] MEDS ORDERED: ONDANSETRON HCL INJ 2MG/ML 2ML 2 MG/ML VIAL ONE (18:32)
[2019-02-21] MEDS ORDERED: NEOSTIGMINE 5 MG/5ML SYR ONE (18:32)
[2019-02-21] MEDS ORDERED: PROPOFOL IV EMULSION 10 MG/ML 20 ML VIAL ONE (18:32)
[2019-02-21] MEDS ORDERED: EPHEDRINE SULFATE INJ 50 MG/10 ML SYR ONE (18:32)
[2019-02-21] MEDS ORDERED: FAMOTIDINE 20 MG/2 ML VIAL IV ONE (18:32)
[2019-02-21] MEDS: ONDANSETRON HCL INJ 2MG/ML 2ML 2 MG/ML VIAL IV PRN ×2 (18:36→22:42)
--- NOTE | 2019-02-21 19:10 | NUR ---
Received patient in report. Patient is A&Ox3. Lungs clear. Bowel sounds active. Skin intact. No edema noted. NG tube connected to low suction, 50mL noted to suction canister from previous shift. SCDs in place, however patient requested they be removed for sleeping. Patient can turn self and ambulate with standby assist. Bed locked in lowest position, HOB at 45degrees, side rails upx2, call light in reach.
[2019-02-21 19:20] VITALS: BP 159/67
[2019-02-21 20:00] VITALS: BP 159/67
--- NOTE | 2019-02-21 20:20 | NUR ---
Patient out of bed to ambulate at this time. Went to restroom and walked half of hallway and back. Steady but slow gait noted. Standby assist throughout. Patient requested to sit in chair to relieve some pain in back from gas buildup. NG tube still connected while in chair. Will continue to monitor. Call light in reach.
[2019-02-22] VITALS (8 sets, daily range): BP systolic 134–179; BP diastolic 64–78
--- NOTE | 2019-02-22 03:25 | NUR ---
Called to room. Patient reports she cannot sleep and is uncomfortable. Requested pain meds. After administration, patient reported feeling nauseated. Provided emesis bags. Stayed with patient 15 minutes. Patient stated she felt like she was having a panic attack. Provided distraction by asking about her children. Eventually patient calmed down and reported she felt "mostly okay" and wanted to attempt to sleep again. Will continue to monitor.
[2019-02-22] MEDS: ONDANSETRON HCL INJ 2MG/ML 2ML 2 MG/ML VIAL IV PRN ×4 (03:27→17:30)
[2019-02-22] MEDS: HYDROMORPHONE 2MG/ML 2 MG/ML ML IV PRN ×4 (03:27→17:30)
[2019-02-22 06:46] LABS: BASOPHILS # (AUTO) 0.1 (0.0-0.1); BASOPHILS % 0.4 % (0.0-1.0); EOSINOPHILS # (AUTO) 0.1 (0.0-0.4); EOSINOPHILS % 1.1 % (0.0-6.0); HEMATOCRIT 35.8 % (34.2-44.1); HEMOGLOBIN 11.2 g/dL (12.0-16.0); LYMPHOCYTES # (AUTO) 3.1 (1.0-3.2); LYMPHOCYTES % 23.6 % (18.0-39.1); MEAN CORPUSCULAR HEMOGLOBIN 24.9 pg (28-32); MEAN CORPUSCULAR HGB CONC 31.3 g/dL (31-35); MEAN CORPUSCULAR VOLUME 79.7 fL (81-99); MONOCYTES # (AUTO) 1.1 (0.2-0.8); MONOCYTES % 8.1 % (4.4-11.3); NEUTROPHILS # (AUTO) 8.7 (2.1-6.9); NEUTROPHILS % 66.3 % (38.7-80.0); PLATELET COUNT 328 x10e3/uL (140-360); RED BLOOD COUNT 4.49 x10e6/uL (3.6-5.1)
--- NOTE | 2019-02-22 07:00 | NUR ---
bedside rounds complete no distress noted, ivf infusing to r fa 20g no ss of infiltration noted, ng to l nare to lcws, updated on poc voiced understanding, denies pain at this time, call light in reach will continue to monitor
[2019-02-22 07:01] LABS: ANION GAP 11.1 mmol/L (8-16); BLOOD UREA NITROGEN 14 mg/dL (7-26); BUN/CREATININE RATIO 21 (6-25); CALCIUM 9.3 mg/dL (8.4-10.2); CARBON DIOXIDE 28 mmol/L (22-29); CHLORIDE 99 mmol/L (98-107); CREATININE, SERUM 0.66 mg/dL (0.57-1.11); EST GLOMERULAR FILTRATION RATE > 60 ML/MIN (60-); GLUCOSE 109 mg/dL (74-118); POTASSIUM 4.1 mmol/L (3.5-5.1); SODIUM 134 mmol/L (136-145)
[2019-02-22] MEDS: SODIUM CHLORIDE 0.9% 250ML IRRIG IR SCH ×3 (11:00→19:00)
[2019-02-22] MEDS: PANTOPRAZOLE 40 MG 10ML VIAL IV SCH (12:35)
--- NOTE | 2019-02-22 15:26 | NUR ---
ng removed as per ordered pt tolerated well
--- NOTE | 2019-02-22 19:15 | NUR ---
bedside report given to oncoming shift, pt left in stable condition
--- NOTE | 2019-02-22 19:25 | NUR ---
Received patient in bedside report. A&Ox3. Patient complains of pain 11/19. Reports passing gas. No S&S of distress noted at this time. Bed locked in lowest position, side rails upx2, call light in reach.
[2019-02-22] MEDS: SODIUM CHLORIDE 0.9% 1000ML 1,000 ML IV SCH ×2 (20:26)
--- NOTE | 2019-02-22 21:45 | NUR ---
Patient reported hitting arm at IV site and stated that it was now burning. Skin noted to be red and slightly swollen. R FA IV removed, catheter tip intact, pressure dressing applied. New IV placed in L FA 22g. One attempt.
--- NOTE | 2019-02-22 23:23 | NUR ---
Call placed to MD Miguel Jon. Patient requested something to make her more comfortable to sleep, pain stated to be 5/10. Parameters for dilauded start at 7/10. New orders received
[2019-02-22] MEDS ORDERED: ZOLPIDEM TARTRATE 10 MG TAB PO PRN (23:30)
[2019-02-23] VITALS: BP 152/68
[2019-02-23 04:00] VITALS: BP 157/71
--- NOTE | 2019-02-23 05:30 | NUR ---
Patient ambulated to restroom at this time. Steady gait noted. Patient reports tenderness to abdomen, decreased from yesterday. No S&S of distress noted.
--- NOTE | 2019-02-23 07:14 | NUR ---
Rcvd patient in report this am. Patient is asleep in bed at this time. No s/s of distress noted
[2019-02-23 07:51] VITALS: BP 141/69
[2019-02-23 08:56] VITALS: BP 141/69
[2019-02-23] MEDS: ACETAMINOPHEN/CODEINE 300MG - 30MG TAB PO PRN ×2 (09:21→14:14)
[2019-02-23] MEDS: PANTOPRAZOLE 40 MG 10ML VIAL IV SCH (11:30)
[2019-02-23 11:47] VITALS: BP 126/59
--- NOTE | 2019-02-23 11:56 | NUR ---
Left wrist IV site noted to be swelling. Removed at this time with pressure dressing. Patient requesting to keep IV out because she is going home
--- NOTE | 2019-02-23 15:05 | NUR ---
Patient discharged from facility to home. Patient assisted out via staff. Reviewed all discharge paperwork, follow up appts, and RX's given. No questions or concerns at this time. Patient and spouse have no questions
== END 2019-02-23 15:10 | disposition home or self-care (01) ==
LOC: OR 05:56 → PACU V 10:53 → MED/SURG 13:42
PROVIDERS: ADMIT Surgery; ATTEND Surgery
DX: K21.9 Gastro-esophageal reflux disease without esophagitis (principal); K44.9 Diaphragmatic hernia without obstruction or gangrene; Z01.810 Encounter for preprocedural cardiovascular examination; Z01.812 Encounter for preprocedural laboratory examination; Z01.811 Encounter for preprocedural respiratory examination; J44.9 Chronic obstructive pulmonary disease, unspecified; K22.70 Barrett's esophagus without dysplasia; Z88.1 Allergy status to other antibiotic agents
CPT/HCPCS: 36415 ×2; 43281; 71046; 80048 ×2; 85025 ×2; 93005; 96360; 96361; C9113 ×3; G0378 ×3; J1100; J1170 ×2; J2001; J2250; J2370; J2405 ×2; J2704; J2765; J3490; J7030 ×2

== ENCOUNTER 2019-03-08 14:25 | Outpatient (RCR) | payer MEDICARE, OTHER | END 2019-03-09 | LOC: PT 14:25 | PROVIDERS: ATTEND Specialist | DX: M75.102 Unspecified rotator cuff tear or rupture of left shoulder, not specified as traumatic (principal); M62.81 Muscle weakness (generalized); M25.512 Pain in left shoulder; M25.612 Stiffness of left shoulder, not elsewhere classified ==

== ENCOUNTER 2019-03-21 13:00 | Outpatient (RCR) | payer MEDICARE, OTHER | END 2019-04-08 | LOC: PT 13:00 | PROVIDERS: ATTEND Specialist | DX: M75.102 Unspecified rotator cuff tear or rupture of left shoulder, not specified as traumatic (principal); M25.512 Pain in left shoulder; M25.612 Stiffness of left shoulder, not elsewhere classified; M62.81 Muscle weakness (generalized) ==

== ENCOUNTER → 2019-11-13 | Outpatient (CLI) | payer MEDICARE, OTHER ==
[~2019-11-13] MED LIST changes: +FENTANYL CITRATE/PF 100MCG/2 ML INJ ONE; +MIDAZOLAM HCL 2 MG/2 ML VIAL ONE
--- NOTE | 2019-11-13 14:09 | Diagnostic Imaging Report ---
TECHNIQUE: Magnetic resonance imaging of the LEFT foot was performed WITHOUT injected contrast. HISTORY: Pain COMPARISON: None available. DISCUSSION: Bone: No focal or infiltrative bone marrow replacing abnormality. No acute fracture or osteonecrosis. Joints: No focal cartilage defect. Soft Tissues: Plantar plates are intact. Intermetatarsal spaces clear. No neuroma or bursitis. Flexor and extensor tendons unremarkable. IMPRESSION: No acute osseous or soft tissue abnormality. Signed by: Dr. Neymar Bañuelos M.D. on 11/13/2019 2:06 PM
--- NOTE | 2019-11-13 14:11 | Diagnostic Imaging Report ---
TECHNIQUE: Magnetic resonance imaging of the LEFT ANKLE was performed WITHOUT injected contrast. COMPARISON: None available. HISTORY: Left ankle pain FINDINGS: LIGAMENTS: Medial Complex: Intact Lateral Complex: Intact, including the tibiofibular ligaments. TENDONS: Medial: Intact Lateral: Peroneal brevis tendinopathy without tear. Anterior: Intact Achilles: Intact BONES: No focal or infiltrative bone marrow replacing abnormality. No acute fracture or osteonecrosis. JOINTS: Cartilage: No focal defect is identified involving the tibiotalar joint. Other: Fluid within the joints is within physiologic limits. SOFT TISSUES: Mild thickening of the proximal plantar fascia with mild adjacent edema. No tear Small calcaneal enthesophytes. IMPRESSION: Peroneal brevis tendinopathy without tear. Mild thickening of the plantar fascia with mild edema/fasciitis without tear. Signed by: Dr. Neymar Bañuelos M.D. on 11/13/2019 2:09 PM
--- NOTE | 2019-11-13 14:15 | Diagnostic Imaging Report ---
MRI SPINE LUMBAR WO HISTORY: Lumbar radiculopathy, low back pain COMPARISON: Chest radiograph 02/19/2019 TECHNIQUE: Sagittal T1, sagittal T2, sagittal STIR, axial T2, coronal T2, and axial proton density weighted images of the lumbar spine were obtained without contrast. Motion artifacts obscure some details. DISCUSSION: Number of non-rib bearing lumbar vertebral bodies: 5. Alignment: Normal lordosis. Subtle thoracolumbar dextroscoliosis is present. Vertebrae: Small nodular T2 hyperintense lesion in the right L2 vertebral body may be an atypical hemangioma. Otherwise, no definite evidence for acute fractures, infection or neoplasm. Conus medullaris: Normal, ends at approximately L1. Cauda equina: No masses or arachnoiditis. Posterior paraspinal muscles: Well preserved. No signal abnormalities. Soft tissues: There is nonspecific mild interspinous edema from L3 to S1. Mild to moderate multilevel disc degeneration is most prominent at L5-S1. There is a posterior annular fissure at L4-L5. T12-L1: Disc bulge without significant canal or foraminal stenosis. L1-L2: Disc bulge without significant canal or foraminal stenosis. L2-L3: Disc bulge without significant canal or foraminal stenosis. L3-L4: Mild canal stenosis due to disc bulge and ligamentum flavum thickening. No significant foraminal stenosis. L4-L5: Mild to moderate canal stenosis due to disc bulge, superimposed central disc protrusion, and ligamentum flavum thickening. Both lateral recesses are slightly effaced. No significant foraminal stenosis. L5-S1: Disc bulge and small right central disc protrusion without significant canal stenosis. Mild bilateral foraminal stenoses due to disc bulge and facet arthrosis. IMPRESSION: 1. Mild to moderate multilevel disc degeneration, most prominent at L5-S1. Associated posterior annular fissure at L4-L5. 2. Mild to moderate L4-L5 and mild L3-L4 degenerative canal stenoses. 3. Mild bilateral L5-S1 degenerative foraminal stenoses. 4. Nonspecific mild interspinous edema from L3 to S1. Signed by: Dr. Boone Amado M.D. on 11/13/2019 2:13 PM
== END ==
LOC: MRI 11:08
PROVIDERS: ATTEND Family Medicine
DX: M54.16 Radiculopathy, lumbar region (principal); M25.572 Pain in left ankle and joints of left foot
CPT/HCPCS: 72148; 73718; 73721; J2250; J3010